=== PATIENT | male | born 1950 | race Caucasian/White ===

== ENCOUNTER → 2016-06-20 | Outpatient (CLI) | payer MEDICARE, BC ==
[~2016-06-20] MED LIST: ASPIRIN81 M1 PO; ASPIRIN81 M2 PO; AUGMENTIN PO; EFFIENT10 MG PO; FERROUS GLUCON324 M1 PO; FLAGYL PO; FLONASE 0.05% N16 GM INH; IBUPROFEN400 MG PO; IPRAT-ALBUT 0.5-3 ML INH; ISOSORBIDE MONO30 M1 PO; LEVAQUIN250 MG PO; LEVAQUIN750 M1 PO; LEVAQUIN750 MG PO; LINEZOLID600 MG PO; LISINOPRIL10 MG PO; MEDROL DOSEPAK4 MG PO; METOPROLOL TAR25 MG PO; NO MEDICATIONS; NORVASC10 MG PO; OXYGEN; PLAVIX PO; PREDNISONE10 M1 PO; ROBITUSSIN A-C10 ML PO; SIMVASTATIN40 MG PO; TYLENOL EXTRA500 M1 PO
--- NOTE | ~2016-06-20 | CT57 ---
[facility]. [facility] A Service of [facility] & [facility] RADIOLOGY TEXT RESULTS PATIENT: KATHLEEN FAIRBANKS LOCATION: [facility] : 50 UNIT #: [id number] AGE: [address]: Lit Vides MD SEX: M ORDER DR: [id number] [place] [id number] O MR#: [id number] Acc #: [id number] NAME: KATHLEEN FAIRBANKS : 1950 SEX: M STUDY DATE/TIME: 06/20/2016 1534 UNIT: [facility] ROOM: STUDY DESCRIPTION: CT Chest Wo Cont Attending Physician: Lit Vides Jr., M.D. Ordering Physician: Lit Vides Jr., M.D. Primary Care Physician: Yobany White M.D. MEDICAL IMAGING REPORT This report is preliminary unless electronic signature is present. EXAM CT chest without contrast, 06/20/2016, 1534 hours. CLINICAL HISTORY 66-year-old man with a history of smoking for 40 years but has quit. COPD, followup lung nodule. Patient complains of chronic shortness of air and pneumonia with 3 recent occurrences. Most recent symptoms began on 06/15/2016 with abnormal chest x-ray on 06/18/2016. TECHNIQUE Helical noncontrasted images were obtained from the thoracic inlet through the adrenal glands. Sagittal and coronal reconstructions were performed. No contrast was administered. CT dose is not recorded on the images. This CT exam was performed with one or more of the following radiation dose reduction techniques: automatic exposure control, adjustment of mA and/or kV according to patient size, and iterative reconstruction. COMPARISON Chest x-ray 06/18/[address] chest 06/08/2015 and multiple prior exams. FINDINGS Images through the thoracic inlet demonstrate stable right thyroid nodule. No thyromegaly or adenopathy. Images through the chest demonstrate no pathologic mediastinal, hilar, or axillary adenopathy. Ascending aorta measures up to 3.6 cm unchanged. Descending thoracic aorta measures maximally 3.8 cm increased from 3.6 cm previously. There are coronary calcifications present. There is no pericardial fluid. The lungs demonstrate an element of underlying centrilobular emphysema. There is airspace and consolidation in the left perihilar region in the STS. [facility] A Service of [facility] & [facility] RADIOLOGY TEXT RESULTS PATIENT: KATHLEEN FAIRBANKS LOCATION: [facility] : 50 UNIT #: [id number] AGE: [address]: Lit Vides MD SEX: M ORDER DR: left upper lobe with diffuse interstitial reticular thickening in the left upper lobe inferiorly and patchy peripheral airspace density in the inferior aspect of the lingula increased from 06/08/2015. Questioned central nodule or mass versus dense consolidation measuring up to 3.5 x 3.0 cm on image 39. The lingular changes have clearly progressed from 06/08/2015 but have been present and unresolved by CT over several years. There is no interval study with complete resolution of the findings in the lingula. There is interstitial change in the left lower lobe with dense airspace density medially. There are vague poorly defined nodular areas which have increased. Example nodule in the lateral left lower lobe measures 1.9 cm, previously 0.8 cm. There is definite progression throughout the left lower lobe. There are findings in the right lung with the same poorly defined nodular changes scattered in the upper lobe, right middle lobe, and lower lobe. A nodule in the superior segment of the right lower lobe measures 1.4 cm and is not seen previously. Smaller nodular areas are seen in the right upper lobe, some of which were present previously. There is no pleural fluid. No definite bronchiectasis. Limited views through the upper abdomen demonstrate a normal appearance to the liver, gallbladder, and bile ducts. The adrenal glands are normal. IMPRESSION 1. Abnormal chest CT with dense consolidation in the left perihilar region of the lingula with diffuse interstitial change and patchy airspace change anteromedially. There is dense airspace change at the medial left lower lobe with scattered vague poorly defined nodular areas in the left lower lobe and now in the right lung, right upper lobe, right middle lobe, and right lower lobe as described above. The findings in the lingula have never completely resolved on multiple CTs dating back through 2014. The density has fluctuated but is clearly progressive today. Findings in the left lower lobe and right lung are new or increased from 2015, but certainly increased from the most recent available CT 06/08/2015. The etiology for these findings is not clear. Consider atypical infection. Malignancy cannot be completely excluded. Other entities including vasculitis should be considered. If the patient has not had a pulmonary consult with bronchoscopy, I would suggest that be performed at this time. 2. There is no adenopathy. 3. There is ascending aortic ectasia up to 3.6 cm with increasing descending thoracic aortic ectasia now 3.8 cm, previously 3.6 cm in 2016. STAT * RESULT [facility]. [facility] A Service of [facility] & [facility] RADIOLOGY TEXT RESULTS PATIENT: KATHLEEN FIARBANKS LOCATION: [facility] : 50 UNIT #: [id number] AGE: [address]: Lit Vides MD SEX: M ORDER DR: Dictated by... Mikala Martinez M.D. THIS IS AN ELECTRONICALLY VERIFIED REPORT Mikala Martinez M.D. at 06/23/2016 2:28 PM WILI/fito TD: 06/23/2016 11:42 JOB #: [id number] MEDICAL IMAGING REPORT Page 1 of 1
== END | disposition home or self-care (01) ==
LOC: SCT 15:28
DX: R91.1 Solitary pulmonary nodule (principal); J18.9 Pneumonia, unspecified organism; I77.810 Thoracic aortic ectasia; R91.8 Other nonspecific abnormal finding of lung field
CPT/HCPCS: 71250

== ENCOUNTER 2016-07-01 21:16 | Inpatient (IN) | payer MEDICARE, BC ==
--- NOTE | ~2016-07-01 | CR72 ---
[facility] A Service of [facility] & [facility] RADIOLOGY TEXT RESULTS PATIENT: KATHLEEN FAIRBANKS LOCATION: [facility] 302-01 : [birth year] UNIT #: [id number] AGE: [address]: Kathrin Matthews MD SEX: M ORDER DR: [id number] [facility] [address] [place], [place] [address] [id number] E MR#: [id number] Acc #: [id number] NAME: KATHLEEN FAIRBANKS. : 1950 SEX: M STUDY DATE/TIME: 07/01/2016 19:50 UNIT: [facility] ROOM: STUDY DESCRIPTION: CR Chest Single View Portable Attending Physician: Louise Kirby M.D. Ordering Physician: Ed Delio Cantu M.D. Primary Care Physician: Yobany White M.D. MEDICAL IMAGING REPORT This report is preliminary unless electronic signature is present EXAM Portable chest INDICATIONS Shortness of breath, cough, congestion, pneumonia for 3 weeks. Comparison with 06/27/2016. FINDINGS Redemonstrated is a airspace infiltrate in the left lung base consistent with pneumonia. It appears to be slightly worse. The remainder of the study is unchanged. IMPRESSION Slight interval worsening of left lung base infiltrate. Dictated by... Braulio Yepez M.D. THIS IS AN ELECTRONICALLY VERIFIED REPORT Braulio Yepez M.D. at 07/02/2016 10:04 AM YENNI/toro TD: 07/01/2016 23:46 JOB #: [id number] MEDICAL IMAGING REPORT Page 1 of 1 COPY
--- NOTE | ~2016-07-01 | HP ---
Unit #: [id number] #: [id number] Patient: KATHLEEN FAIRBANKS [id number] [address] [place], [place] [address] [id number] I MR#: [id number] NAME: KATHLEEN FAIRBANKS. ROOM: 69455 Age: 66 Sex: M Admission Date: 07/02/2016 : 1950 Attending Physician: Verónica Mckinnon M.D. Primary Care Physician: Yobany White M.D. HISTORY AND PHYSICAL CHIEF COMPLAINT Respiratory failure, possible pneumonia, failing outpatient treatment. HISTORY This pleasant 66-year-old male with CAD, hypertension, COPD, is admitted for respiratory failure. Patient states that he was well until three weeks prior to admission when he began to experience increasing shortness of breath particularly in the morning upon awakening with a cough, which is mainly nonproductive, associated with some wheezing. Denies fever, sweats, chills, or pleuritic chest pain with the above. He was seen by his primary care physician and given a course of steroids and amoxicillin without much improvement. Last week was placed on a Z-Edilson and a CT scan was performed. The CT scan is abnormal, as will be dictated below, possible consistent with pneumonia, although malignancy could not be ruled out. Despite the Z-EDILSON patient's symptoms have persisted. He presents to this emergency department today where his O2 sats are in the upper 80s. Chest x-ray shows slight increase infiltrates left lung base. In the ER he was treated with Rocephin, given a bolus of IV fluids. Also given Zithromax, Solu-Medrol, magnesium and is on a 50% Ventimask with O2 sats of about 94%. PAST MEDICAL HISTORY 1. CAD with previous SC four years ago requiring stent placement. Ejection fraction 45% to 50%. 2. Essential hypertension. 3. COPD. 4. Hyperlipidemia. 5. GERD. 6. Peripheral vascular disease, status post stents in the right leg. 7. Diverticular disease. 8. Left knee arthroscopic surgery. 9. Vasectomy. 10. Cardiac and right lower extremity stents. ALLERGIES No known drug allergies. HOME MEDICATIONS Lisinopril 10 mg daily; Lopressor 25 mg daily; Plavix 75 mg daily; aspirin 81 mg daily; Zocor 40 mg daily; p.r.n. albuterol. FAMILY HISTORY Positive for tuberculosis and CAD. Of note, patient has always tested Unit #: [id number] #: [id number] Patient: KATHLEEN FAIRBANKS negative for TB. SOCIAL HISTORY The patient lives with his who currently is ill with malignancy. He has a history of 80 pack year smoking history but stopped smoking seven years ago. Drinks occasional alcohol. REVIEW OF SYSTEMS Notable for shortness of breath, cough, wheezing, COPD, CAD, hypertension, hyperlipidemia, GERD, peripheral vascular disease, diverticular disease and above mentioned surgeries. All other systems were reviewed and are negative. PHYSICAL EXAMINATION GENERAL: Pleasant 66-year-old male currently in no acute distress. VITAL SIGNS: Temperature 97.8, pulse 96, respirations 15, blood pressure 142/109 but did increase to a systolic blood pressure of 180. His O2 saturation was about 94% on a 50% Ventimask. HEENT: Eyes - PERRLA. Extraocular muscles are intact. Pharynx is benign. NECK: Supple without adenopathy or thyromegaly. CHEST: Chest reveals some crackles and rhonchi on the left. CARDIAC: Normal S1 and S2 without murmur. ABDOMEN: Soft, bowel sounds are present. No hepatosplenomegaly, tenderness or masses. EXTREMITIES: Without edema. Pedal pulses stronger on the left than the right. NEUROLOGIC: Patient is awake, alert and oriented. Cranial nerves are intact. Equal strength throughout. DIAGNOSTIC STUDIES LABORATORY STUDIES: Hematocrit is 44.4, white blood count is 13.5, normal platelet count. SMA 12 is normal. IMAGING STUDIES: Chest x-ray shows increased density left lower lung. CT scan performed last week - dense consolidation in the left perihilar region of the lingula with diffuse interstitial changes and patchy air space changes. Dense airspace change at the medial left lower lobe with scattered vague poorly defined nodular areas in the left lower lobe and now in the right lung, right upper lobe, right middle lobe, and right lower lobe. Consider atypical infection, malignancy cannot be excluded. Questionable vasculitis. No adenopathy. Ascending aortic ectasia up to 3.6 cm with increasing descending thoracic aorta, ectasia now to 3.8 cm from 3.6 cm in 2016. CARDIOLOGY STUDIES: EKG - sinus rhythm rate 86, Q in lead 3. ASSESSMENT 1. Possible community acquired pneumonia failing outpatient antibiotics with likely acute on chronic hypoxic respiratory failure. Abnormal CT scan last week. Need to also be consider malignancy, etc. 2. COPD. 3. CAD. Ejection fraction 45% to 50%. 4. Essential hypertension. 5. Hyperlipidemia. 6. Peripheral vascular disease, status post right leg stent. 7. Ascending aortic ectasia. Unit #: [id number] #: [id number] Patient: KATHLEEN FAIRBANKS 8. Patient was exposed to tuberculosis but has always had negative PPDs for TB. PLANS 1. Rocephin and Levaquin pending cultures. 2. DuoNeb and steroids. 3. Pulmonary consultation. 4. DVT prophylaxis. 5. Monitor blood pressure and treat if persistently elevated. 6. Legionella antigen. Dictated by Lula Rodriguez/ts TD: 07/02/2016 05:32 JOB #: [id number] HISTORY AND PHYSICAL Page 1 of 1 X Verónica Mckinnon MD X HISTORY AND PHYSICAL
--- NOTE | ~2016-07-01 | EKG ---
PATIENT: KATHLEEN FAIRBANKS UNIT #: [id number] Ventricular Rate: 86 BPM Atrial Rate: 86 BPM P-R Interval: 112 ms QRS Duration: 104 ms Q-T Interval: 372 ms QTC Calculation(Bezet): 445 ms P Colton: 34 degrees Calculated R Colton: -8 degrees Calculated T Colton: 81 degrees Diagnosis Line: Normal sinus rhythm Diagnosis Line: Inferior infarct , age undetermined Diagnosis Line: Abnormal ECG Diagnosis Line: No previous ECGs available Diagnosis Line: Confirmed by ARYAN RENNER MD ([id number]) on 07/02/2016 Diagnosis Line: 10:44:48 PM INTERPRETING MD: ZURDO SANTOS
--- NOTE | ~2016-07-01 | DS ---
Unit #: [id number] #: [id number] Patient: KATHLEEN FAIRBANKS [id number] [address] [place], [place] [address] [id number] I MR#: [id number] NAME: KATHLEEN FAIRBANKS. ROOM: 302 Age: 66 Sex: M Admission Date: 07/02/2016 : 1950 Discharge Date: 07/04/2016 Attending Physician: Kathrin Matthews M.D. Primary Care Physician: Yobany White M.D. DISCHARGE SUMMARY PRINCIPAL DIAGNOSES 1. Auzqi-jv-igseyzy hypoxic respiratory failure maintained on 2 liters of oxygen per nasal cannula. 2. Acute exacerbation of chronic obstructive pulmonary disease. 3. Left lower lobe community-acquired pneumonia versus atypical pneumonia. 4. Hypertension, uncontrolled. 5. Hyperkalemia, JORGE inhibitor induced. 6. Iron-deficiency anemia. 7. Steroid-induced leukocytosis. 8. Non-anion gap metabolic acidosis. 9. Coronary artery disease. 10. Hyperlipidemia. 11. Mild protein malnutrition. CONSULTANTS Dr. Peace, pulmonology. PROCEDURES Chest x-ray on 07/01/2016 with left lung infiltrate. CLINICAL HISTORY AND HOSPITAL COURSE Mr. Fairbanks is a very nice 66-year-old male who presents to the emergency department with increasing shortness of breath despite being treated as an outpatient for pneumonia. Please refer to History and Physical for further details. Patient was found to be significantly hypoxic in the emergency department with O2 saturations in the low 80s. He was subsequently admitted. Chest x-ray done in the emergency department did reveal left lower lobe infiltrate and patient was placed on broad-spectrum antibiotics. Sputum has been unremarkable. I also note procalcitonin has been normal and patient only had mild leukocytosis of 13,[address] Peace was consulted. On antibiotic therapy, in addition to IV steroids due to patient's underlying COPD, he is clinically improved. On day of discharge, his oxygen requirements are 2 liters at rest and I am currently awaiting an ambulating O2 saturation to determine need of oxygen at home. However, I strongly anticipate he will require oxygen at home, at least in the short-term, and I will arrange this as necessary. Patient did have some mild hyperkalemia during hospitalization and lisinopril has been discontinued. I have replaced with Norvasc and blood pressure will have to be monitored as an outpatient with medication adjustment. Unit #: [id number] #: [id number] Patient: KATHLEEN FAIRBANKS Patient has otherwise remained stable and will be discharged home today. DISCHARGE CONDITION Stable. DISCHARGE STATUS Discharge to home. DISCHARGE MEDICATIONS 1. Combivent nebulizer 3 mL q.i.d. p.r.n. for shortness of breath. 2. Prednisone 10 mg tablets 4 tablets for 3 days; then, 3 tablets for 3 days; then, 2 tablets for 3 days; then, 1 tablet for 3 days; then, discontinue. 3. Levaquin 750 mg p.o. daily for 5 days. 4. Norvasc 10 mg daily. 5. Ferrous gluconate 324 mg b.i.d. 6. Metoprolol tartrate 25 mg daily. 7. Simvastatin 40 mg h.s. 8. Aspirin 81 mg daily. 9. Plavix 75 mg daily. 10. Oxygen at 2-3 liters per nasal cannula continuously; need will be determined later today with ambulating O2 saturations. DISCHARGE INSTRUCTIONS 1. Patient was instructed to follow a heart-healthy diet. 2. Increase activity as tolerated. FOLLOWUP Patient will follow up with Dr. Peace next week at which time he has an appointment. Can arrange for outpatient bronchoscopy as necessary for further evaluation of his left lower lobe infiltrate. The patient would also like to hold on addition of maintenance inhalers until seen as an outpatient by Dr. Peace. Dictated by... Kathrin Matthews M.D. RADHA/aisha TD: 07/04/2016 21:33 JOB #: [id number] Unit #: [id number] #: [id number] Patient: KATHLEEN FAIRBANKS DISCHARGE SUMMARY Page 1 of 1 X Kathrin Matthews MD DISCHARGE SUMMARY
--- NOTE | ~2016-07-01 | DS ---
Unit #: [id number] #: [id number] Patient: KATHLEEN FAIRBANKS [id number] [address] [address] [id number] I MR#: [id number] NAME: KATHLEEN FAIRBANKS. ROOM: [facility] Age: 66 Sex: M Admission Date: 07/02/2016 : 1950 Discharge Date: 07/04/2016 Attending Physician: Kathrin Matthews M.D. Primary Care Physician: Yobany White M.D. DISCHARGE SUMMARY ADDENDUM Ambulating oxygen saturation was 89 to 90% and, thus, the patient will not be sent home with any oxygen. Dictated by... Lula Rodriguez/cortez TD: 07/06/2016 13:25 JOB #: [id number] DISCHARGE SUMMARY Page 1 of 1 X Kathrin Matthews MD X DISCHARGE SUMMARY
--- NOTE | ~2016-07-01 | CO ---
Unit #: [id number] #: [id number] Patient: KATHLEEN FAIRBANKS [id number] [address] [place], [place] [address] [id number] MR#: [id number] NAME: KATHLEEN FAIRBANKS. ROOM: 302 Age: 66 Sex: M Admission Date: 07/02/2016 : 1950 Attending Physician: Kathrin Matthews M.D. Primary Care Physician: Yobany White M.D. Consultation Date: 07/02/2016 CONSULTATION REPORT HISTORY OF PRESENT ILLNESS This is a gentleman with history of pulmonary fibrosis and scarring. He said he has a history of COPD and coronary artery disease. He has had several pneumonia over the past several months. He has a history of coronary disease and hypertension. The patient was admitted for respiratory failure approximately 3 weeks prior to admission. The patient developed increasing shortness of breath particularly in the morning when he working up with a cough nonproductive, wheezing. No fevers, chills, sweats, or chills. The patient is seen by primary care physician, given a course of steroids and amoxicillin without improvement. Following week, he was placed on a Z-Edilson, still no improvement. CT scan showed that there was significant scarring especially in the lingular lobe; however, in both the right and left lower lobes, this seems to be somewhat increased from approximately one year ago. The patient shows some increase in the infiltrate, so we suspected there was a community-acquired pneumonia on top of his chronic infiltrates. The previous bronchoscopy did not show any growth of AFBs or any organisms. However, the patient is still likely to have opportunistic in organism growth. Therefore, we have been consulted to see whether the patient is appropriate for bronchoscopy. PAST MEDICAL HISTORY Significant for coronary artery disease, previous ME 4 years ago, required stent placement, ejection fraction 45% to 50%; essential hypertension; COPD; hyperlipidemia; GERD; peripheral vascular disease; diverticular disease. PAST SURGICAL HISTORY Significant for vasectomy, right lower extremity stent, left knee arthroscopic surgery, cardiac stent. ALLERGIES The patient has no known medical allergies. HOME MEDICATIONS Include lisinopril 10 mg daily, Lopressor 25 mg daily, Plavix 75 mg daily, aspirin 81 mg daily, Zocor 40 mg daily, and albuterol p.r.n. FAMILY HISTORY Positive for tuberculosis and coronary artery disease. The patient has never been PPD positive. SOCIAL HISTORY The patient lives with , who is currently ill. He has 80-pack year history of smoking. Stopped 7 years ago. Occasional EtOH. Unit #: [id number] #: [id number] Patient: KATHLEEN FAIRBANKS REVIEW OF SYSTEMS Significant for cough, wheezing, shortness of breath. No sweats, but no significant fevers, chills, nausea, vomiting, or diarrhea. There may have been some weight loss. Otherwise, a 12-point review of systems is negative. PHYSICAL EXAMINATION VITAL SIGNS: T-current 97.6, pulse 86, respiratory rate 141/73, saturations 95% 2 L nasal cannula. CHEST: Shows decreased breath sounds bilaterally with no rhonchi, rales, or wheezes. CARDIOVASCULAR: Regular rate. No gallop. ABDOMEN: Soft, nontender, and nondistended. EXTREMITIES: Shows no evidence of edema. DIAGNOSTIC STUDIES LABORATORY RESULTS: Labs show BUN and creatinine 18/0.8, otherwise chem-7 is normal. White count is 11.8 with MCV 78.4, hemoglobin 13.4 on presentation. Vitamin B12 461. Lactic acid 1.6. All cultures are negative so far. ASSESSMENT AND PLAN Recurrent pneumonia. I suspect this is due to the scarring especially in the lingular lobe; however, I am worried that the patient may have chronic infection. Therefore, we will try to proceed with a bronchoscopy when the patient's oxygen requirements are lower. Currently, the patient is too hypoxic to do a bronchoscopy. We will follow him as an outpatient and try to do it at that point. Meantime, I would like to continue current nebs and going to continue antibiotics and I would like to continue with systemic steroids. We are going to check him for any sort of autoimmune disease to see if this infiltrates is in bilateral lower lobes and scattered in actually a fibrosis. Thank you very much for this consult and allowing us to participate in the care of this patient. Please page me at [phone] if you have any questions. Dictated by.Julieta Peace M.D. VICKY/camille TD: 07/04/2016 02:31 JOB #: [id number] CONSULTATION REPORT Page 1 of 1 X Valente Peace MD CONSULTATION REPORT
[~2016-07-01 21:16] MED LIST changes: -FERROUS GLUCON324 M1 PO; -IPRAT-ALBUT 0.5-3 ML INH; -ISOSORBIDE MONO30 M1 PO; -LEVAQUIN250 MG PO; -LINEZOLID600 MG PO; -NORVASC10 MG PO; -PREDNISONE10 M1 PO
[2016-07-01 21:37] LABS: BASOPHIL# 0.1 X10e3 (0-0.3); BASOPHIL% 0.6 % (0-2.5); EOSINOPHIL# 0.2 X10e3 (0-0.7); EOSINOPHIL% 1.1 % (0.0-7.0); HEMATOCRIT 44.4 % (38.0-50.0); HEMOGLOBIN 13.9 gm/dL (13.0-16.0); LYMPHOCYTE# 2.8 X10e3 (1.0-3.5); LYMPHOCYTE% 20.8 % (17.0-45.0); MEAN CELL VOLUME 78.9 FL (83-96); MEAN CORPUSCULAR HEMOGLOBIN 24.7 PG (28-34); MEAN CORPUSCULAR HGB CONC 31.3 g/dL (30-36); MEAN PLATELET VOLUME 7.6 FL (6.5-11.5); MONOCYTE# 1.4 X10e3 (0-1.0); MONOCYTE% 10.1 % (3.0-12.0); NEUTROPHIL# 9.1 X10e3 (1.5-7.1); NEUTROPHIL% 67.4 % (40-75); PLATELET COUNT 328 X10e3 (140-420); RED BLOOD COUNT 5.63 X10e (3.90-5.60); RED CELL DISTRIBUTION WIDTH 16.2 % (11.0-15.5); WHITE BLOOD COUNT 13.5 X10e3 (4.0-10.5)
[2016-07-01 21:40] LABS: DIFF IND NO
[2016-07-01 22:00] LABS: ALBUMIN SERUM 3.6 g/dL (3.5-5.0); BILIRUBIN, DIRECT 0.1 mg/dL (0.0-0.2); BILIRUBIN,INDIRECT 0.4 mg/dL (0.0-0.9); BILIRUBIN,TOTAL 0.5 mg/dL (0.2-2.0); BUN/CREATININE RATIO 22.22; CALCIUM SERUM 8.8 mg/dL (8.4-10.2); CREATININE SERUM 0.9 mg/dL (0.6-1.4); GLOM FILT RATE Estimated 88.7 mL/min (>60); POTASSIUM 4.1 mmol/L (3.5-5.1); PROTEIN TOTAL SERUM 6.8 g/dL (6.0-8.3)
[2016-07-02 00:54] LABS: BASOPHIL% 0.4 % (0-2.5); EOSINOPHIL% 0.3 % (0.0-7.0); HEMATOCRIT 42.5 % (38.0-50.0); HEMOGLOBIN 13.4 gm/dL (13.0-16.0); LYMPHOCYTE# 0.9 X10e3 (1.0-3.5); LYMPHOCYTE% 7.7 % (17.0-45.0); MEAN CELL VOLUME 78.4 FL (83-96); MEAN CORPUSCULAR HEMOGLOBIN 24.8 PG (28-34); MEAN CORPUSCULAR HGB CONC 31.6 g/dL (30-36); MEAN PLATELET VOLUME 7.6 FL (6.5-11.5); MONOCYTE# 0.2 X10e3 (0-1.0); MONOCYTE% 1.7 % (3.0-12.0); NEUTROPHIL# 10.6 X10e3 (1.5-7.1); NEUTROPHIL% 89.9 % (40-75); PLATELET COUNT 319 X10e3 (140-420); RED BLOOD COUNT 5.42 X10e (3.90-5.60); RED CELL DISTRIBUTION WIDTH 16.3 % (11.0-15.5); WHITE BLOOD COUNT 11.8 X10e3 (4.0-10.5)
[2016-07-02 00:55] LABS: DIFF IND NO
[2016-07-02 01:18] LABS: BUN/CREATININE RATIO 22.5; CALCIUM SERUM 8.1 mg/dL (8.4-10.2); CREATININE SERUM 0.8 mg/dL (0.6-1.4); GLOM FILT RATE Estimated 93.1 mL/min (>60); POTASSIUM 4.3 mmol/L (3.5-5.1)
[2016-07-02 12:17] LABS: IRON SERUM 22 ug/dL (45-182); TOTAL IRON BINDING CAPACITY 469 ug/dL (252-460); TRANSFERRIN 335 mg/dL (180-329); TRANSFERRIN SATURATION 5 % (20-50)
[2016-07-03 05:39] LABS: HEMATOCRIT 42.2 % (38.0-50.0); HEMOGLOBIN 13.1 gm/dL (13.0-16.0); MEAN CELL VOLUME 79.5 FL (83-96); MEAN CORPUSCULAR HEMOGLOBIN 24.7 PG (28-34); MEAN PLATELET VOLUME 8.1 FL (6.5-11.5); RED BLOOD COUNT 5.3 X10e (3.90-5.60); RED CELL DISTRIBUTION WIDTH 16.3 % (11.0-15.5); WHITE BLOOD COUNT 14.7 X10e3 (4.0-10.5)
[2016-07-03 06:00] LABS: CALCIUM SERUM 8.6 mg/dL (8.4-10.2); CREATININE SERUM 0.9 mg/dL (0.6-1.4); GLOM FILT RATE Estimated 88.7 mL/min (>60); MAGNESIUM 2.2 mg/dL (1.6-3.0); POTASSIUM 5.1 mmol/L (3.5-5.1)
[2016-07-04 05:42] LABS: MEAN CELL VOLUME 79.1 FL (83-96); MEAN CORPUSCULAR HEMOGLOBIN 24.6 PG (28-34); MEAN PLATELET VOLUME 8.4 FL (6.5-11.5); RED BLOOD COUNT 5.31 X10e (3.90-5.60); RED CELL DISTRIBUTION WIDTH 16.2 % (11.0-15.5); WHITE BLOOD COUNT 18.2 X10e3 (4.0-10.5)
[2016-07-04 06:36] LABS: BILIRUBIN,TOTAL 0.4 mg/dL (0.2-2.0); BUN/CREATININE RATIO 28.75; CALCIUM SERUM 8.5 mg/dL (8.4-10.2); CREATININE SERUM 0.8 mg/dL (0.6-1.4); GLOM FILT RATE Estimated 93.1 mL/min (>60); POTASSIUM 4.8 mmol/L (3.5-5.1)
[2016-07-04] MEDS ORDERED: NORVASC10 MG PO (13:37)
[2016-07-04] MEDS ORDERED: IPRAT-ALBUT 0.5-3 ML INH (13:37)
[2016-07-04] MEDS ORDERED: FERROUS GLUCON324 M1 PO (13:39)
[2016-07-04] MEDS ORDERED: LEVAQUIN750 M1 PO (13:40)
[2016-07-04] MEDS ORDERED: PREDNISONE10 M1 PO (13:41)
[2016-07-05 14:18] LABS: ANA SCREEN Positive (Negative); ANA TITER (ANA) 1:40 (Negative); ANA TITER COMMENT Has been added (()); NUCLEAR PATTERN (ANA) Homogeneous (())
== END 2016-07-04 14:15 | disposition home or self-care (01) | DRG 189 ==
LOC: CED 21:16 → CEDOF 07-02 00:10 → C3A PCU 07-02 07:36
PROVIDERS: Emergency Medicine; Internal Medicine; Internal Medicine Pulmonary Disease
DX: J96.21 Acute and chronic respiratory failure with hypoxia (principal); J18.9 Pneumonia, unspecified organism; E87.2 Acidosis; J44.0 Chronic obstructive pulmonary disease with (acute) lower respiratory infection; J84.10 Pulmonary fibrosis, unspecified; J44.1 Chronic obstructive pulmonary disease with (acute) exacerbation; E44.1 Mild protein-calorie malnutrition; I10 Essential (primary) hypertension; E87.5 Hyperkalemia; D50.9 Iron deficiency anemia, unspecified; I25.10 Atherosclerotic heart disease of native coronary artery without angina pectoris; E78.5 Hyperlipidemia, unspecified; Z95.820 Peripheral vascular angioplasty status with implants and grafts; D72.829 Elevated white blood cell count, unspecified; T38.0X5A Adverse effect of glucocorticoids and synthetic analogues, initial encounter; I25.2 Old myocardial infarction; Z95.5 Presence of coronary angioplasty implant and graft; Z79.02 Long term (current) use of antithrombotics/antiplatelets; Z79.82 Long term (current) use of aspirin; Z82.49 Family history of ischemic heart disease and other diseases of the circulatory system; Z87.891 Personal history of nicotine dependence
CPT/HCPCS: 36415; 71010; 80048; 80053; 80076; 82164; 82308; 82607; 83540; 83550; 83605; 83735; 85025; 85027; 85652; 86038; 86039; 86430; 87040; 87070; 87102; 87106; 87116; 87205; 87206; 87449; 87633; 93005; 94640; 94760; 96365; 96375; 99285; J0360; J0456; J0696; J1650; J1956; J2920; J2930; J3370; J3475

== ENCOUNTER 2016-07-21 22:25 | Inpatient (IN) | payer MEDICARE, BC ==
--- NOTE | ~2016-07-21 | EKG ---
PATIENT: KATHLEEN AFIRBANKS UNIT #: [id number] Ventricular Rate: 84 BPM Atrial Rate: 84 BPM P-R Interval: 134 ms QRS Duration: 102 ms Q-T Interval: 358 ms QTC Calculation(Bezet): 423 ms P Charlotte: 74 degrees Calculated R Charlotte: 56 degrees Calculated T Charlotte: 88 degrees Diagnosis Line: Normal sinus rhythm Diagnosis Line: Nonspecific ST abnormality Baseline wander Diagnosis Line: Otherwise normal ECG Non Diagnostic Q in Lead Diagnosis Line: Inferior leads Diagnosis Line: No previous ECGs available Diagnosis Line: Confirmed by GARFIELD ISABEL MD ([id number]) on 07/23/2016 Diagnosis Line: 9:50:29 AM INTERPRETING MD: CHALO SANTOS
--- NOTE | ~2016-07-21 | ST ---
Unit #: [id number] #: [id number] Patient: KATHLEEN FAIRBANKS [id number] [facility]. [facility] [address] [place] [address] [place], [place] [address] [id number] I MR#: [id number] NAME: KATHLEEN FAIRBANKS. : 1950 SEX: M STUDY DATE/TIME: 07/23/2016 UNIT: C3A PCU ROOM: 308 STUDY DESCRIPTION: Cardiac stress test. Attending Physician: Anish Lange M.D. Primary Care Physician: Yobany White M.D. CARDIOLOGY REPORT EXAM Lexiscan Cardiolite stress test. PROCEDURE Baseline EKG normal sinus rhythm with ventricular rate 77 beats per minute, poor R wave progression, left ventricular hypertrophy, peak T waves in the inferior anterolateral leads. Lexiscan is a 4 minute test with Lexiscan being injected within the first minute followed by Cardiolite. EKG during the test was equivocal to baseline. No acute ischemic changes. The patient had no complaints of chest pain, palpitations or dizziness. Had increased shortness of breath and fatigue which resolved in the recovery phase. Maximum heart rate response was 102 beats per minute with a maximum blood pressure response of 126/65 mmHg. Cardiolite was injected after Lexiscan within the first minute of the test. Radionuclide test pending. Please correlate with nuclear images. Dictated by... Bisi Ceja M.D. CEC/sha TD: 07/23/2016 12:08 JOB #: [id number] CC: Yobany White M.D. [facility] CARDIOLOGY REPORT Page 1 of 1 X Maria L Byrd APRN CARDIOLOGY REPORT
--- NOTE | ~2016-07-21 | TH ---
Unit #: [id number] #: [id number] Patient: KATHLEEN FAIRBANKS [id number] [facility]. [address] [place], [place] [address] [id number] I MR#: [id number] NAME: KATHLEEN FAIRBANKS. : 1950 SEX: M STUDY DATE/TIME: 07/23/2016 UNIT: C3A PCU ROOM: 308 STUDY DESCRIPTION: Attending Physician: Anish Lange M.D. Primary Care Physician: Yobany White M.D. CARDIOLOGY REPORT EXAM Lexiscan Cardiolite stress test, nuclear portion. PROCEDURE Using technetium 99m labeled Cardiolite, rest and stress SPECT images were obtained. Multiple SPECT images were obtained in various views including horizontal and vertical long axis and short axis views of the left ventricle. Images were obtained by gated SPECT method. The patient was administered 12 mCi of Cardiolite at rest. The patient was administered 34.5 mCi of Cardiolite after Lexiscan infusion was completed. On the stress images, there is normal perfusion noted. The rest images showed normal perfusion. Comparing rest and stress images, there is no stress-induced ischemia noted. The left ventricular ejection fraction is calculated to be 56%. There is no focal wall motion abnormality seen. CONCLUSION 1. No stress-induced ischemia noted. 2. The left ventricular ejection fraction is calculated to be 56%. 3. There is no focal wall motion abnormality seen. 4. Normal Lexiscan Cardiolite stress test. 5. Technically limited study. Clinical correlation is requested. Dictated by... Lula Kirkpatrick TD: 07/23/2016 16:54 JOB #: [id number] Unit #: [id number] #: [id number] Patient: KATHLEEN FAIRBANKS CARDIOLOGY REPORT Page 1 of 1 X Sonam Shipman MD <ELECTRONICALLY SIGNED> 10/04/16 [id number] CARDIOLOGY REPORT
--- NOTE | ~2016-07-21 | CO ---
Unit #: [id number] #: [id number] Patient: KATHLEEN FAIRBANKS [id number] [facility]. [address] [place], [place] [address] [id number] I MR#: [id number] NAME: KATHLEEN FAIRBANKS. ROOM: 308 Age: 66 Sex: M Admission Date: 07/22/2016 : 1950 Attending Physician: Anish Lange M.D. Primary Care Physician: Yobany White M.D. Consultation Date: 07/24/2016 CONSULTATION REPORT This is ESTRADA Hennessy dictating for Jasmeet Bui M.D. REASON FOR CONSULTATION Abnormal echocardiogram and chest pain. HISTORY OF PRESENT ILLNESS This is a 66-year-old male, known to Dr. Bui, with a prior cardiac history of coronary artery disease with a non-STEMI in 2012. He had a cardiac cath in 03/2012, which showed left main normal, left circumflex 80% proximal and 95% marginal branch, LAD normal, RCA 100% immediately beyond origin with ipsilateral and contralateral collaterals, EF of 45% to 50% with eglhvtbg-ml-yswtiz inferobasilar hypokinesis. At that time, he underwent PTCA with drug-eluting stent to left circumflex proximal and marginal. He also has a history of hypertension, hyperlipidemia, peripheral vascular disease with right lower extremity stent, GERD, diverticulosis, reformed tobacco abuse. In addition, he has a history of COPD and pulmonary fibrosis. He was recently hospitalized in 07/02/2016 through 07/04/2016 for pneumonia and he was sent home on oxygen at night. He presented to the hospital with increasing shortness of breath, productive cough, and intermittent dyspnea on exertion. In the ER, his saturations were 84% on room air. A chest x-ray showed progressing infiltrates. CT of the chest was negative for a PE, but showed increasing infiltrates. Initially, he was given antibiotics. On 07/23/2016, a Lexiscan Cardiolite stress test was done, which was negative for ischemia. He report an episode of left anterior chest "aching" pain with left axilla and left arm numbness and tingling. The chest discomfort occurred when he was walking outside of his car. He became short of breath and it was accompanied with nausea and dizziness. Pain was worse with deep inspiration and resolves spontaneously with rest, although his left chest is cloth bleaching range tender with palpation. He reports he had one similar episode with activity in the last couple weeks. This pain is different than the pain he had with his non-STEMI in 2013. Denies other episodes of chest pain since his cardiac cath in 2012. We were asked to see him due to his abnormal echo and the chest pain episode. PAST MEDICAL HISTORY 1. Coronary artery disease, status post non-STEMI in 2012 and PTCA/drug eluting stent to the left circumflex x2. 2. Cardiac cath on 04/08/2012 showed left main normal, left circumflex 80% proximal and 95% marginal branch, LAD normal, RCA 100% immediately beyond origin with ipsilateral and contralateral collaterals, EF 45% to 50% with qezsrqvt-bs-afzuou inferobasilar hypokinesis. Unit #: [id number] #: [id number] Patient: KATHLEEN FAIRBANKS 3. Hypertension. 4. Hyperlipidemia. 5. PVD, status post right lower extremity stent. 6. COPD with nocturnal O2. 7. Pulmonary fibrosis. 8. GERD. 9. Diverticulosis. 10. Reformed tobacco abuse. 11. Recent hospitalization for pneumonia on 07/02/2016 through 07/04/2016. PAST SURGICAL HISTORY 1. Bronchoscopy in 04/2015. 2. Left knee arthroscopy. 3. Cardiac cath and PTCA and stents on 04/08/2012. 4. Vasectomy. SOCIAL HISTORY He lives with his . He works 25 hours a week. Denies illicit drug use. Drinks a beer less than 5 times a year. Former heavy smoker, but quit in 2009. FAMILY HISTORY His brother from an ND at the age of 41. Another brother of an ND at 62. His sister had valve repair in her 40s. ALLERGIES No known drug allergies. HOME MEDICATIONS Metoprolol tartrate 25 mg p.o. daily, Plavix 75 mg p.o. daily, aspirin 81 mg p.o. daily, simvastatin 40 mg p.o. daily, albuterol/Atrovent inhaler q.i.d., Norvasc 10 mg p.o. daily, ferrous gluconate 324 mg p.o. b.i.d. REVIEW OF SYSTEMS Positive for dyspnea on exertion, intermittent chest pain, left arm numbness and tingling. Otherwise, negative except for what was stated in the HPI. PHYSICAL EXAMINATION GENERAL: This is a pleasant 66-year-old male, resting in bed, in no acute distress. VITAL SIGNS: Temperature 97.4, heart rate 84, respiratory rate 18, blood pressure 117/51, height 70 inches, weight 76 kilograms. HEENT: Head is atraumatic and normocephalic. Pupils are equal and round. Mucous membranes are moist. Poor dentition. NECK: Supple. Trachea is midline. Negative for JVD. LUNGS: Rales in bilateral bases. Nonlabored respiratory pattern. CARDIOVASCULAR: S1, S2. Regular rate and rhythm. No murmurs or gallops heard. ABDOMEN: Soft, nontender, nondistended. EXTREMITIES: Pulses are palpable. No pedal edema. No cyanosis. NEUROLOGIC: Alert and oriented x3. Moves all extremities equally and follows commands without difficulty. DIAGNOSTIC STUDIES LABORATORY RESULTS: Sodium 135, potassium 4.9, chloride 104, BUN 20, creatinine 0.8, glucose 141. Hemoglobin 10.7, hematocrit 34, white blood cell count 12.5, platelets 342. Lipid panel: Cholesterol 159, Unit #: [id number] #: [id number] Patient: KATHLEEN FAIRBANKS triglycerides 44, LDL 76, HDL 74. Twpyn-ff-tomz troponin less than 0.05, troponin less than 0.03 x2. BNP 41. IMAGING STUDIES: Chest x-ray demonstrates possible lingular and left lower lobe infiltrate significantly changed from chest x-ray on 07/01/2016, findings are superimposed on background emphysema. CTA of chest negative for pulmonary embolus, demonstrates progressive airspace disease in consolidation of left lower lobe as well as continuing extensive consolidation inferior lingular segment. CARDIOVASCULAR STUDIES: EKG shows normal sinus rhythm with Q-wave in lead II and aVF, which is unchanged from EKG done on 05/04/2015, ventricular rate 84. Echocardiogram on 07/23/2016 shows LVEF of 50% to 55%, moderate septal hypokinesis, inferior wall hypokinesis, and mild MR. Lexiscan Cardiolite stress test done on 07/23/2016 was a technically limited study, but was negative for ischemia with an EF of 56%. ASSESSMENT 1. Chest pain. a. Lexiscan Cardiolite negative for ischemia. b. Cardiac enzymes negative. c. EKG, no ischemic changes. 2. Acute exacerbation of chronic obstructive pulmonary disease. 3. Dyspnea on exertion. 4. Coronary artery disease with history of myocardial infarction, status post percutaneous transluminal coronary angioplasty/drug eluting stent to left circumflex x2 in 2012. 5. Peripheral vascular disease, status post right lower extremity stents. 6. Essential hypertension. 7. Hyperlipidemia. 8. Pulmonary fibrosis. 9. Gastroesophageal reflux disease. PLAN We will add a nitrate with Imdur ER 30 mg p.o. once a day. We will watch him closely for blood pressure tolerance. No further ischemic workup is indicated at this time. We will follow on an outpatient basis. He is to keep his already scheduled appointment with Dr. Bui. Continue his beta-gabriela and calcium channel gabriela. Continue dual antiplatelet therapy with Plavix and aspirin. Continue statin as well. Okay for discharge from cardiac standpoint. No further ischemic workup indicated at this time. Thank you for asking us to see this patient. We appreciate the consult. Dictated by... Neda Dooley APRN for Lula Mendez/camille TD: 07/26/2016 06:51 JOB #: [id number] Unit #: [id number] #: [id number] Patient: KATHLEEN FAIRBANKS CONSULTATION REPORT Page 1 of 1 X X CONSULTATION REPORT
--- NOTE | ~2016-07-21 | CT16 ---
[facility] A Service of [facility] RADIOLOGY TEXT RESULTS PATIENT: KATHLEEN FAIRBANKS LOCATION: [facility] 308-01 : [birth year] UNIT #: [id number] AGE: [address]: Anish Lange MD SEX: M ORDER DR: [id number] [facility] [address] [place], [place] [address] [id number] I MR#: [id number] Acc #: [id number] NAME: KATHLEEN FAIRBANKS. : 1950 SEX: M STUDY DATE/TIME: 07/22/2016 1:39 UNIT: CEDOF ROOM: 04866 STUDY DESCRIPTION: CT Angio Chest for PE Attending Physician: Anish Lange M.D. Ordering Physician: Cyala Maria M.D. Primary Care Physician: Yobany White M.D. MEDICAL IMAGING REPORT This report is preliminary unless electronic signature is present EXAM CT chest PE protocol HISTORY Shortness of air chest pain x2 days, elevated D-dimer. HISTORY COPD COMPARISON CT chest 05/04/[address] chest 06/20/2016 TECHNIQUE Axial images form through the chest following IV contrast. Multiplanar reconstructed images reviewed at a workstation. This CT exam was performed with one or more of the following radiation dose reduction techniques: automatic control, adjustment of mA and/or kV according to patient size, and iterative reconstruction. FINDINGS Examination demonstrates extensive lung disease with airspace disease and opacification of the left lower lobe which has shown interval increase from the 06/20/2016 study. The lingular airspace disease and consolidation is not significantly changed. There are patchy areas of alveolitis superior segment left lower lobe and also superior segment right lower lobe. This has shown increase from the 06/20/2016 study. No evidence of pulmonary embolus. Heart size within normal limits. Aortic atherosclerotic changes but no aneurysm. No significant adenopathy. Upper abdomen to include the adrenal glands unremarkable. Osseous structures remarkable for a small superior endplate compression deformity at T9 thoracic inlet unremarkable. [facility] A Service of [facility] RADIOLOGY TEXT RESULTS PATIENT: FAIRBANKS,KATHLEEN M LOCATION: C3A 308-01 : [birth year] UNIT #: [id number] AGE: [address]: Anish Lange MD SEX: M ORDER DR: IMPRESSION 1. No evidence of pulmonary embolus. 2. Progressive airspace disease and consolidation left lower lobe as well as continued extensive consolidation inferior lingular segment. New or increasing patchy foci of alveolitis and airspace disease noted right lower lobe and superior segments of both lower lobes. Changes are superimposed on background emphysema. Findings most likely reflect airspace disease, but could represent other atypical infections as well as bronchiolitis obliterans with organizing pneumonia. Further pulmonary evaluation followup is recommended. Neoplastic process considered unlikely given the diffuse involvement. Dictated by... Amanda Yepez M.D. THIS IS AN ELECTRONICALLY VERIFIED REPORT Amanda Yepez M.D. at 07/23/2016 10:33 PM MARCO/augustin TD: 07/22/2016 07:20 JOB #: [id number] MEDICAL IMAGING REPORT Page 1 of 1 COPY
--- NOTE | ~2016-07-21 | DS ---
Unit #: [id number] #: [id number] Patient: KATHLEEN FAIRBANKS [id number] [address] [place], [place] [address] [id number] I MR#: [id number] NAME: KATHLEEN FAIRBANKS. ROOM: 308 Age: 66 Sex: M Admission Date: 07/22/2016 : 1950 Discharge Date: 07/25/2016 Attending Physician: Anish Lange M.D. Primary Care Physician: Yobany White M.D. DISCHARGE SUMMARY DISCHARGE DIAGNOSES 1. Hypoxic respiratory failure. 2. Chronic obstructive pulmonary disease exacerbation. 3. Dyspnea on exertion. 4. History of coronary artery disease. 5. History of peripheral vascular disease. 6. Essential hypertension. 7. Gastroesophageal reflux disease. 8. Left anterior chest pneumonia. CONSULTANTS Dr. Peace of pulmonary. Dr. Bui of cardiology. PROCEDURES PERFORMED None. DIAGNOSTIC DATA IMAGING: Chest x-ray 07/21/2016 with impression of extensive airspace opacity left lower lobe with some obscuration of the heart margin and left hemidiaphragm, suggesting a possible lingula left lower lobe infiltrate, not significantly changed from 06/21/2016. CT angiogram of the chest on 07/22/2016 with impression of no evidence of pulmonary embolism. Progressive airspace disease and consolidation left lower lobe, as well as continued extensive consolidation inferior lingula segment. New increasing patchy foci of alveolitis and airspace disease noted right lower lobe and superior segment of both lower lobes. Changes are superimposed on background emphysema. LABORATORY: On the day of discharge, BMP with glucose of 115, BUN 28, creatinine 0.8, sodium 135, potassium 4.7, chloride 105, CO2 22, calcium 8.4. CBC with white blood cell count of 13.6, RBC 3.92, hemoglobin 10, hematocrit 31.7, MCV 81.0, MCH 25.4, MCHC 31.4, RDW 19.8, platelets 321, MPV 7.1. Please note the patient's blood culture had no growth times two. Sputum culture was normal respiratory janell. HOSPITAL COURSE The patient is a 66-year-old male with a past medical history of chronic obstructive pulmonary disease, pulmonary fibrosis and scarring, coronary artery disease, peripheral vascular disease. The patient presented to the emergency department due to symptoms of shortness of breath. The patient was hospitalized at this facility from 07/02 to 07/04 for community acquired pneumonia with acute chronic obstructive pulmonary disease Unit #: [id number] #: [id number] Patient: KATHLEEN FAIRBANKS exacerbation. He was discharged without the need for oxygen during the day, but use at night only. He states that he went back to work and was in his usual state of health, but three days prior to admission he started to have symptoms of dyspnea on exertion which was not always present, but would come and go. On the day of admission he had symptoms of numbness in his left hand and pain in his axilla, therefore, presented to the emergency department for further evaluation. In the emergency department he was found to be hypoxic with a pO2 of 76.4 on 50% Venturi mask. CT angiogram of the chest was done, which found no acute PE. The patient was hospitalized for acute exacerbation with acute hypoxic respiratory failure. He was initially started on IV antibiotics and seen in consultation with Dr. Jiang of pulmonary. Legionella as well as strep pneumo antigen were both negative in the urine. Procalcitonin level was 0.14. Due to symptoms of chest pain and dyspnea on exertion with a history of coronary artery disease nuclear stress test was done, which was normal. Two-dimensional echo was also done as well, with results of left ventricular systolic function normal with visually estimated ejection fraction of 50%-55%, moderate septal hypokinesis was noted. Inferior wall hypokinesis was noted. Mild mitral regurgitation is present. Small pericardial effusion versus fat tissue was present. The patient was seen in consultation with Dr. Bui, who felt the patient was stable to be discharged home. At this time the patient is ambulating on room air without desaturating. He is ready to be discharged home, both from pulmonary and cardiology perspectives. He will follow up with Dr. Bui and call their office for a follow-up appointment. He will follow up with Dr. Kingston. Please note that the consolidation in the left lingula is of concern. The patient is to follow up with Dr. Kingston within two weeks. ACTIVITY Not restricted. Resume as per prior to hospitalization with ambulating every day as tolerated. DIET Resume heart healthy diet as per prior to hospitalization. DISCHARGE MEDICATIONS 1. Duo-Neb inhaled q.i.d. p.r.n. shortness of breath. 2. Prednisone under Dr. Peace's recommendation. The patient will be discharged on 40 mg p.o. daily for 2 days, then 30 mg p.o. daily for 2 days, then 20 mg p.o. daily for 2 days, then 10 mg p.o. daily for 2 days. 3. Norvasc 10 mg p.o. daily. 4. Metoprolol 25 mg p.o. daily. 5. Simvastatin 40 mg p.o. at bedtime. 6. Iron gluconate 324 mg p.o. b.i.d. 7. Aspirin 81 mg p.o. daily. 8. Plavix 75 mg p.o. daily. 9. Per cardiology's prescription and recommendation the patient is to start with Imdur extended release 30 mg p.o. daily. 10. Under Dr. Peace's recommendation the patient will also be prescribed Levaquin 750 mg p.o. daily for the next 5 days. Dictated by... Kenia Marcelino PA-C for Anish Lange M.D. Unit #: [id number] #: [id number] Patient: KATHLEEN FAIRBANKS Gallito TP/gz TD: 07/28/2016 08:23 JOB #: [id number] DISCHARGE SUMMARY Page 1 of 1 X X DISCHARGE SUMMARY
--- NOTE | ~2016-07-21 | HP ---
Unit #: [id number] #: [id number] Patient: KATHLEEN FAIRBANKS [id number] [address] [place], [place] [address] [id number] I MR#: [id number] NAME: KATHLEEN FAIRBANKS. ROOM: 69930 Age: 66 Sex: M Admission Date: 07/22/2016 : 1950 Attending Physician: Verónica Mckinnon M.D. Primary Care Physician: Yobany White M.D. HISTORY AND PHYSICAL CHIEF COMPLAINT Respiratory failure. HISTORY This pleasant 66-year-old male with COPD, pulmonary fibrosis, and scarring, CAD, peripheral vascular disease, is admitted for worsening shortness of breath. The patient was last admitted to this facility 07/02/2016 through 07/04/2016 for likely community acquired pneumonia with COPD exacerbation. He did require nocturnal oxygen after discharge. He states that he improved until past two days when he developed a deep cough productive of clear sputum. Yesterday noticed that his O2 sats are running low in the morning but he felt better later in the day until last evening when he developed acute onset of shortness of breath worse with exertion. No definite fevers with the above. He presented to this emergency department late last evening where his O2 saturation was 84% on room air. Chest x-ray and CT scan show progressive/increasing opacities, particularly on the left. In the ER he was treated with Zosyn, vancomycin, and tobramycin. PAST MEDICAL HISTORY 1. CAD with previous MS four years ago requiring stent placement with ejection fraction of 45% to 50%. 2. Essential hypertension. 3. COPD, pulmonary fibrosis and scarring. Patient underwent bronchoscopy 04/2015. No endobronchial lesions were present. Thick mucoid secretion in both lungs, which were suctioned and diffuse hyperemia of the mucosa bilaterally. 4. Hyperlipidemia. 5. GERD. 6. Peripheral vascular disease, status post stents in the right leg. 7. Diverticular disease. 8. Left knee arthroscopic surgery. 9. Vasectomy. ALLERGIES No known drug allergies. HOME MEDICATIONS Lopressor 25 mg daily; Plavix 75 mg daily; aspirin 81 mg daily; Zocor 40 mg daily; DuoNeb q.i.d. as needed; Norvasc 10 mg daily; iron 324 mg b.i.d. FAMILY HISTORY Tuberculosis and CAD. Patient has always tested negative for Unit #: [id number] #: [id number] Patient: KATHLEEN FAIRBANKS tuberculosis. SOCIAL HISTORY The patient lives with his . Has a history of 80 pack year smoking history but stopped smoking seven years ago. Drinks an occasional beer. REVIEW OF SYSTEMS Worsening shortness of breath, cough, CAD, hypertension, COPD, hyperlipidemia, GERD, peripheral vascular disease, diverticular disease, above mentioned surgeries. All other systems were reviewed and are otherwise negative. PHYSICAL EXAMINATION GENERAL: Pleasant, thin, 66-year-old male currently in no acute distress. VITAL SIGNS: Temperature 98.4, pulse 67, respirations 22, blood pressure 145/67, O2 saturation 84% on room air, currently 94% on a 50% Ventimask. HEENT: Eyes - PERRLA, extraocular muscles are intact. Pharynx is benign. NECK: Supple without adenopathy or thyromegaly. CHEST: Diminished breath sounds at the left base. There are anterior wheezes bilaterally. CARDIAC: Normal S1 and S2 without definite murmur. ABDOMEN: Bowel sounds are present. No hepatosplenomegaly, tenderness or masses. EXTREMITIES: Minimal edema. Pedal pulses are diminished. NEUROLOGIC: Patient is awake, alert and oriented. Cranial nerves are intact. Equal strength throughout. DIAGNOSTIC STUDIES ADMISSION LABS: Hematocrit 38.1, white blood count is 11.5, normal platelet count. SMA 12 - normal lactic acid. Negative cardiac markers normal. BNP normal. ABG - pH 7.44, pCO2 38, pO2 70, O2 saturation 92.8% on 4 L. IMAGING STUDIES: Chest x-ray - extensive left lower lobe air space opacity in the lingula and left lower lobes, not changed since 06/2016. CT was negative for PE but shows progressive left lower lobe and lingular infiltrates new or increase in the right lower lobe and superior segments of bilateral upper lobes. CARDIOLOGY STUDIES: Sinus rhythm, rate 84, normal appearing. ASSESSMENT 1. Acute on chronic hypoxic respiratory failure with increasing infiltrates on CT scan. Will certainly cover for possible pneumonia but infiltrates maybe inflammatory. Patient does have fibrosis and scarring along with COPD, which now is exacerbated. 2. CAD with mild LV dysfunction. 3. Peripheral vascular disease. 4. Hypertension. 5. GERD. PLANS 1. Steroids and bronchodilators. Will treat with vancomycin and cefepime. Patient also received 1 dose of tobramycin in the ER, which I will not continue as patient does not appear to be septic. 2. Check procalcitonin level. 3. DVT prophylaxis. Unit #: [id number] #: [id number] Patient: KATHLEEN FAIRBANKS 4. Pulmonary consultation. 5. Florastor. Dictated by Verónica Mckinnon M.D. AML/ts TD: 07/22/2016 05:25 JOB #: [id number] HISTORY AND PHYSICAL Page 1 of 1 X Verónica Mckinnon MD HISTORY AND PHYSICAL
--- NOTE | ~2016-07-21 | CR72 ---
[facility] A Service of [facility] & [facility] RADIOLOGY TEXT RESULTS PATIENT: KATHLEEN FAIRBANKS LOCATION: [facility] 308-01 : [birth year] UNIT #: [id number] AGE: [address]: Anish Lange MD SEX: M ORDER DR: [id number] [facility] [address] [place], [place] [address] [id number] I MR#: [id number] Acc #: [id number] NAME: KATHLEEN FAIRBANKS. : 1950 SEX: M STUDY DATE/TIME: 07/21/2016 23:03 [facility] RO[facility] 95535 STUDY DESCRIPTION: CR Chest Single View Portable Attending Physician: Verónica Mckinnon M.D. Ordering Physician: Terrie Stacy M.D. Primary Care Physician: Yobany White M.D. MEDICAL IMAGING REPORT This report is preliminary unless electronic signature is present EXAM Portable chest HISTORY Shortness of air chest pain beginning 2 days ago COMPARISON 07/01/2016 FINDINGS AP portable view of the chest demonstrates extensive airspace opacity left lower lobe with some obscuration of the heart margin and left hemidiaphragm suggesting a possible lingular and left lower lobe infiltrate. This is not significantly changed from the chest radiograph of 07/01/2016. Changes are superimposed on background emphysema. Heart and mediastinum unremarkable. No sizeable effusion. Recommend clinical and radiographic follow up to resolution after appropriate medical treatment. Dictated by... Amanda Yepez M.D. THIS IS AN ELECTRONICALLY VERIFIED REPORT Amanda Yepez M.D. at 07/23/2016 10:35 PM MARCO/augustin TD: 07/22/2016 06:01 JOB #: [id number] MEDICAL IMAGING REPORT Page 1 of 1 COPY
[~2016-07-21 22:25] MED LIST changes: +FERROUS GLUCON324 M1 PO; +IPRAT-ALBUT 0.5-3 ML INH; +NORVASC10 MG PO; +PREDNISONE10 M1 PO
[2016-07-21 23:15] LABS: ARTERIAL BLD GAS O2 SATURATION 92.8 % (90.0-100.0); ARTERIAL BLOOD GAS CARBOXY HB 1.6 %sat (0.0-9.0); ARTERIAL BLOOD GAS HCO3 26.2 mmol/L; ARTERIAL BLOOD GAS MET HB 0.9 %sat (0.0-2.0); ARTERIAL BLOOD GAS PCO2 38.4 mmHg (35.0-45.0); ARTERIAL BLOOD GAS pH 7.443 (7.350-7.450)
[2016-07-21 23:17] LABS: ARTERIAL BLOOD GAS ALLEN TEST NORMAL; ARTERIAL BLOOD GAS ART SITE LEFT RADIAL; ARTERIAL BLOOD GAS DELIVERY NASAL CANNULA; ARTERIAL BLOOD GAS PO2 70.5 mmHg (80.0-100); ARTERIAL DRAW? YES
[2016-07-21 23:21] LABS: BASOPHIL# 0.1 X10e3 (0-0.3); BASOPHIL% 0.6 % (0-2.5); EOSINOPHIL# 0.2 X10e3 (0-0.7); EOSINOPHIL% 1.9 % (0.0-7.0); HEMATOCRIT 38.1 % (38.0-50.0); HEMOGLOBIN 11.8 gm/dL (13.0-16.0); LYMPHOCYTE# 2.2 X10e3 (1.0-3.5); LYMPHOCYTE% 18.7 % (17.0-45.0); MEAN CELL VOLUME 82.3 FL (83-96); MEAN CORPUSCULAR HEMOGLOBIN 25.4 PG (28-34); MEAN CORPUSCULAR HGB CONC 30.9 g/dL (30-36); MEAN PLATELET VOLUME 7.3 FL (6.5-11.5); MONOCYTE# 0.7 X10e3 (0-1.0); MONOCYTE% 6.4 % (3.0-12.0); NEUTROPHIL# 8.3 X10e3 (1.5-7.1); NEUTROPHIL% 72.4 % (40-75); PLATELET COUNT 353 X10e3 (140-420); RED BLOOD COUNT 4.63 X10e (3.90-5.60); RED CELL DISTRIBUTION WIDTH 20.2 % (11.0-15.5); WHITE BLOOD COUNT 11.5 X10e3 (4.0-10.5)
[2016-07-21 23:22] LABS: DIFF IND NO
[2016-07-21 23:29] LABS: POC - CKMB 3.4 ng/mL (0.0-7.9); POC - TROPONIN <0.05 ng/mL (<=0.05)
[2016-07-21 23:44] LABS: ALBUMIN SERUM 3.8 g/dL (3.5-5.0); BILIRUBIN, DIRECT 0.1 mg/dL (0.0-0.2); BILIRUBIN,INDIRECT 0.3 mg/dL (0.0-0.9); BILIRUBIN,TOTAL 0.4 mg/dL (0.2-2.0); BUN/CREATININE RATIO 22.5; CALCIUM SERUM 9.1 mg/dL (8.4-10.2); CREATININE SERUM 0.8 mg/dL (0.6-1.4); GLOM FILT RATE Estimated 93.1 mL/min (>60); POTASSIUM 3.9 mmol/L (3.5-5.1)
[2016-07-22 01:28] LABS: POC - CKMB 1.7 ng/mL (0.0-7.9); POC - TROPONIN <0.05 ng/mL (<=0.05)
[2016-07-22 05:51] LABS: BASOPHIL% 0.4 % (0-2.5); EOSINOPHIL# 0.2 X10e3 (0-0.7); EOSINOPHIL% 2.3 % (0.0-7.0); HEMOGLOBIN 11.2 gm/dL (13.0-16.0); LYMPHOCYTE# 2.2 X10e3 (1.0-3.5); MEAN CELL VOLUME 82.3 FL (83-96); MEAN CORPUSCULAR HEMOGLOBIN 25.5 PG (28-34); MEAN PLATELET VOLUME 7.6 FL (6.5-11.5); MONOCYTE# 1.1 X10e3 (0-1.0); MONOCYTE% 9.7 % (3.0-12.0); NEUTROPHIL# 7.4 X10e3 (1.5-7.1); NEUTROPHIL% 67.6 % (40-75); PLATELET COUNT 338 X10e3 (140-420); RED BLOOD COUNT 4.38 X10e (3.90-5.60); RED CELL DISTRIBUTION WIDTH 19.5 % (11.0-15.5); WHITE BLOOD COUNT 10.9 X10e3 (4.0-10.5)
[2016-07-22 05:54] LABS: ARTERIAL BLD GAS O2 SATURATION 93.9 % (90.0-100.0); ARTERIAL BLOOD GAS CARBOXY HB 1.3 %sat (0.0-9.0); ARTERIAL BLOOD GAS HCO3 23.1 mmol/L; ARTERIAL BLOOD GAS PCO2 37.3 mmHg (35.0-45.0); ARTERIAL BLOOD GAS pH 7.401 (7.350-7.450)
[2016-07-22 05:55] LABS: ARTERIAL BLOOD GAS ALLEN TEST NORMAL; ARTERIAL BLOOD GAS ART SITE LEFT RADIAL; ARTERIAL BLOOD GAS DELIVERY VENTURI; ARTERIAL BLOOD GAS PO2 76.4 mmHg (80.0-100); ARTERIAL DRAW? YES
[2016-07-22 05:55] LABS: DIFF IND NO
[2016-07-22 06:39] LABS: BUN/CREATININE RATIO 21.42; CALCIUM SERUM 8.4 mg/dL (8.4-10.2); CREATININE SERUM 0.7 mg/dL (0.6-1.4); GLOM FILT RATE Estimated 98.4 mL/min (>60); POTASSIUM 4.8 mmol/L (3.5-5.1)
[2016-07-22 07:24] LABS: PROCALCITONIN 0.22 NG/ML
[2016-07-23 04:31] LABS: HEMOGLOBIN 10.7 gm/dL (13.0-16.0); MEAN CELL VOLUME 81.3 FL (83-96); MEAN CORPUSCULAR HEMOGLOBIN 25.5 PG (28-34); MEAN CORPUSCULAR HGB CONC 31.4 g/dL (30-36); MEAN PLATELET VOLUME 7.5 FL (6.5-11.5); RED BLOOD COUNT 4.18 X10e (3.90-5.60); RED CELL DISTRIBUTION WIDTH 19.5 % (11.0-15.5); WHITE BLOOD COUNT 12.5 X10e3 (4.0-10.5)
[2016-07-23 04:57] LABS: CALCIUM SERUM 8.8 mg/dL (8.4-10.2); CREATININE SERUM 0.8 mg/dL (0.6-1.4); GLOM FILT RATE Estimated 93.1 mL/min (>60); MAGNESIUM 2.4 mg/dL (1.6-3.0); POTASSIUM 4.9 mmol/L (3.5-5.1)
[2016-07-24 06:18] LABS: LEGIONELLA AG URINE NEG (NEG)
[2016-07-25 06:36] LABS: HEMATOCRIT 31.7 % (38.0-50.0); MEAN CORPUSCULAR HEMOGLOBIN 25.4 PG (28-34); MEAN CORPUSCULAR HGB CONC 31.4 g/dL (30-36); MEAN PLATELET VOLUME 7.2 FL (6.5-11.5); RED BLOOD COUNT 3.92 X10e (3.90-5.60); RED CELL DISTRIBUTION WIDTH 19.8 % (11.0-15.5); WHITE BLOOD COUNT 13.6 X10e3 (4.0-10.5)
[2016-07-25 07:11] LABS: CALCIUM SERUM 8.4 mg/dL (8.4-10.2); CREATININE SERUM 0.8 mg/dL (0.6-1.4); GLOM FILT RATE Estimated 93.1 mL/min (>60); POTASSIUM 4.7 mmol/L (3.5-5.1)
[2016-07-25] MEDS ORDERED: LEVAQUIN750 M1 PO (10:19)
[2016-07-25] MEDS ORDERED: ISOSORBIDE MONO30 M1 PO (10:19)
[2016-07-25] MEDS ORDERED: PREDNISONE10 M1 PO (10:21)
== END 2016-07-25 11:08 | disposition home or self-care (01) | DRG 189 ==
LOC: CED 22:25 → C3A PCU 07-22 04:30 → CEDOF 07-22 04:30 → CED 07-22 04:34 → C3A PCU 07-22 04:34 → CEDOF 07-22 04:34 → C3A PCU 07-22 07:36 → CEDOF 07-22 07:36 → C3A PCU 07-22 16:30 → CED 07-22 16:30 → CEDOF 07-22 16:30 → C3A PCU 07-25 11:08
PROVIDERS: Emergency Medicine; Internal Medicine; Internal Medicine Pulmonary Disease; Student in an Organized Health Care Education/Training Program
PROC: B32TYZZ Computerized Tomography (CT Scan) of Left Pulmonary Artery using Other Contrast (ICD-10-PCS; principal; 2016-07-22)
PROC: B32SYZZ Computerized Tomography (CT Scan) of Right Pulmonary Artery using Other Contrast (ICD-10-PCS; 2016-07-22)
PROC: B24BYZZ Ultrasonography of Heart with Aorta using Other Contrast (ICD-10-PCS; 2016-07-23)
DX: J96.21 Acute and chronic respiratory failure with hypoxia (principal); J84.10 Pulmonary fibrosis, unspecified; J44.1 Chronic obstructive pulmonary disease with (acute) exacerbation; Z99.81 Dependence on supplemental oxygen; I25.10 Atherosclerotic heart disease of native coronary artery without angina pectoris; I73.9 Peripheral vascular disease, unspecified; I10 Essential (primary) hypertension; K21.9 Gastro-esophageal reflux disease without esophagitis; Z95.5 Presence of coronary angioplasty implant and graft; I25.2 Old myocardial infarction; R07.9 Chest pain, unspecified
CPT/HCPCS: 36415; 36600; 71010; 71275; 78452; 80048; 80061; 80076; 80202; 82308; 82550; 82553; 82607; 82803; 83605; 83735; 83880; 84484; 85025; 85027; 85379; 87040; 87070; 87205; 87449; 87633; 87899; 93005; 93017; 93306; 94640; 94760; 96365; 99285; A9500; J0692; J1650; J1940; J2543; J2785; J2920; J3260; J3370; Q9967

== ENCOUNTER → 2016-10-23 | Outpatient (CLI) | payer MEDICARE, BC ==
[~2016-10-23] MED LIST changes: +ISOSORBIDE MONO30 M1 PO; +LEVAQUIN250 MG PO; +LINEZOLID600 MG PO
--- NOTE | ~2016-10-23 | CT57 ---
[facility] A Service of [facility] & [facility] RADIOLOGY TEXT RESULTS PATIENT: KATHLEEN FAIRBANKS LOCATION: [facility] : 50 UNIT #: [id number] AGE: [address]: Rowena Shabazz SEX: M ORDER DR: [id number] [facility] [address] [place], [place] [address] [id number] O MR#: [id number] Acc #: [id number] NAME: KATHLEEN FAIRBANKS : 1950 SEX: M STUDY DATE/TIME: 10/23/2016 18:14 UNIT: [facility] ROOM: STUDY DESCRIPTION: CT Chest Wo Cont Attending Physician: Rowena Shabazz A.P.R.N. Referring Physician: Rowena Shabazz A.P.R.N. Ordering Physician: Rowena Shabazz A.P.R.N. Primary Care Physician: Yobany White M.D. MEDICAL IMAGING REPORT This report is preliminary unless electronic signature is present EXAM CT chest without contrast, 10/23/2016, 1814 hours. HISTORY 66-year-old man complains of shortness of air for 3 years worsening since May. Chronic cough. History of pneumonia in May and June 2016. COMPARISON CT angiogram of the chest, 07/22/2016; chest x-ray 08/12/2016 TECHNIQUE Helical noncontrasted images were obtained from the lung bases through the pubic symphysis. Sagittal and coronal reconstructions were performed. Total exam DLP 690 mGy-cm. This CT exam was performed with one or more of the following radiation dose reduction techniques: automatic exposure control, adjustment of mA and/or kV according to patient size, and iterative reconstruction. FINDINGS Images through the thoracic inlet demonstrate normal thyroid gland. Images through the chest demonstrates stable ectasia of the thoracic aorta. Pulmonary arteries are at the upper limits of normal. There are coronary calcifications. There is no pericardial fluid and no right pleural fluid. There is trace pleural fluid on the left. Patient has underlying centrilobular emphysema in the upper lobes. There is persistent abnormal appearance to the lingular segment of the left upper lobe where is dense somewhat nodular consolidation and there is diffuse reticular interstitial change throughout the left upper lobe with patchy airspace density peripheral to this in the lingula. This finding has been present for several years but is progressive. There is also progression of multifocal airspace change in the left lower lobe diffusely initially began on CT study of 01/09/2015, but significantly increased STS. [facility] A Service of [facility] & [facility] RADIOLOGY TEXT RESULTS PATIENT: KATHLEEN FAIRBANKS LOCATION: [facility] : 50 UNIT #: [id number] AGE: [address]: Rowena Shabazz SEX: M ORDER DR: with both interstitial and airspace change and air bronchograms more medially than laterally. There has been progression of the airspace somewhat nodular change, in the right lower lobe with associated ground-glass changes. There is new peribronchiolar ground-glass and irregularly marginated rounded densities in the right middle lobe and right upper lobe not present on the most recent available CT 07/22/2016. This is a chronic process ongoing in the lungs with clear progression bilaterally with progression of previously identified areas and new areas in the right upper lobe and right middle lobe. If this is infectious, it would represent atypical organisms. Other entities including bronchiolitis obliterans with organizing pneumonia, vasculitis, Pat's granulomatosis should be considered. The presence of malignancy has not been excluded. If the patient has not had recent bronchoscopy or tissue sampling of the lung, this would be recommended. Limited views through the upper abdomen demonstrate no liver or adrenal lesion. There is an intrarenal nonobstructing stone in the left kidney. IMPRESSION There is interval progression of the previously demonstrated areas of abnormal airspace and interstitial change in the left upper lobe, the left lower lobe and the right lower lobe. There are new poorly defined ground-glass nodular areas in a peribronchiolar distribution in the right upper lobe and right middle lobe. The process in the left upper lobe began at least in 2014 and has never resolved. It is clearly progressive as well as progressive change in the left lower lobe and right lower lobe. The findings likely do not represent a simple pneumonia. Differential considerations would include atypical infections including mycobacterial infection. Other entities including bronchiolitis obliterans with organizing pneumonia, vasculitis, Pat's granulomatosis should be considered. The presence of bronchoalveolar cell carcinoma cannot be excluded based on this appearance. If the patient has not had received recent bronchoscopy and/or tissue sampling for diagnostic purposes this would be recommended. These findings have clearly progressed since July 22, 2016, CT. STAT * RESULT Dictated by... Mikala Martinez M.D. THIS IS AN ELECTRONICALLY VERIFIED REPORT Mikala Martinez M.D. at 10/24/2016 2:30 PM WILI/namrata TD: 10/24/2016 11:37 JOB #: [id number] MEDICAL IMAGING REPORT [facility] A Service of [facility] & [facility] RADIOLOGY TEXT RESULTS PATIENT: KATHLEEN FAIRBANKS LOCATION: [facility] : 50 UNIT #: [id number] AGE: [address]: Rowena Shabazz SEX: M ORDER DR: Page 1 of 1 COPY
== END | disposition home or self-care (01) ==
LOC: CCAT 17:55
DX: J18.9 Pneumonia, unspecified organism (principal); R93.8 Abnormal findings on diagnostic imaging of other specified body structures
CPT/HCPCS: 71250

== ENCOUNTER → 2016-11-03 | Day surgery (SDC) | payer MEDICARE, BC ==
--- NOTE | ~2016-11-03 | OR ---
Unit #: [id number] #: [id number] Patient: KATHLEEN FAIRBANKS [id number] [facility]. [place], [place] [address] [id number] O MR#: [id number] NAME: KATHLEEN FAIRBANKS. ROOM: Date of Procedure: 11/03/2016 Admission Date: 11/03/2016 Surgeon: Matty Kingston M.D. : 1950 Attending Physician: Matty Kingston M.D. Primary Care Physician: Yobany White M.D. OPERATIVE REPORT PROCEDURE PERFORMED Bronchoscopy. INDICATION Left pneumonia worsening. PREOPERATIVE DIAGNOSIS Left pneumonia worsening. INTRAOPERATIVE FINDINGS Frothy white secretions mostly left, but little bit on the right. POSTOPERATIVE DIAGNOSIS Left-sided pneumonia worsening. DESCRIPTION OF PROCEDURE Mr. Fairbanks is a 66-year-old male, seen by my nurse practitioner in the office. He had been apparently admitted I assume in June and had a CAT scan with a left upper lobe and left lower lobe infiltrate. Repeat CAT scan ordered by my nurse practitioner revealed that not only was the infiltrate not better, but it probably was a bit worse. Bronchoscopy was set up for this reason. He was brought to endoscopy. He is on Plavix, but had to held for 5 days. We were not initially set up for fluoroscopy, so I did not proceed with a transbronchial biopsy. He was given sedation via a MAC by the anesthesiologist and scope was done through a bite block. The vocal cords were within normal limits. Trachea was within normal limits. Although, he had frothy white secretions everywhere, less in the trachea than in the left side. There were no endobronchial lesions, right upper lobe, right middle lobe, and right lower lobe. This was a good look and I did some extra washings in the right lower lobe because he has a little bit of infiltrate there also. On the left, the left upper lobe including the lingula are completely without endobronchial lesions. Nonetheless, washing was done at left upper lobe lower division, which is the lingula. Washing was also done in the left lower lobe, but I did not wash as much there because I plan to do a BAL. Brushing was done in the lingula inferior segment. Only a Teeny bit of ooze of blood was noted from that. The specimen trap was changed and full BAL was done in the left lower lobe. 120 mL with return of 54, which was actually a fairly good return. He tolerated the procedure, but he did have some hypoxemia, which is certainly imaginable given the degree of airspace disease. Please note that I discuss possible parameters of admission with him and I actually suggested admitting him postop, but he is a little reluctant. I Unit #: [id number] #: [id number] Patient: KATHLEEN FAIRBANKS did make a deal that if he cannot be oxygenated on 2 L, which is what he has at home that we would keep him. Dictated by... Lula Alvarez/camille TD: 11/04/2016 02:54 JOB #: [id number] OPERATIVE REPORT Page 1 of 1 X Matty Kingston MD PROCEDURE OPERATIVE NOTE
[2016-11-03 13:06] LABS: BODY FLUID SOURCE BRONCHIAL LAVAGE
[2016-11-03 13:07] LABS: BODY FLUID APPEARANCE CLEAR
[2016-11-03 13:09] LABS: BF TOTAL NUCLEATED CELL COUNT 420 CMM (0-100); BODY FLUID RBC <10000 CMM
== END | disposition home or self-care (01) ==
LOC: COPS 10-31 11:00
PROVIDERS: Internal Medicine Pulmonary Disease
DX: J18.9 Pneumonia, unspecified organism (principal); I25.2 Old myocardial infarction; Z87.442 Personal history of urinary calculi; Z87.891 Personal history of nicotine dependence; Z79.02 Long term (current) use of antithrombotics/antiplatelets; Z79.82 Long term (current) use of aspirin; Z79.899 Other long term (current) drug therapy; Z95.5 Presence of coronary angioplasty implant and graft; Z99.81 Dependence on supplemental oxygen; Z98.52 Vasectomy status
CPT/HCPCS: 87070; 87102; 87106; 87116; 87205; 87206; 87252; 87254; 88104; 88108; 88305; 88312; 89051; J0171; J0696

== ENCOUNTER 2016-11-10 22:27 | Inpatient (IN) | payer MEDICARE, BC ==
[~2016-11-10] VITALS: Ht 177.8 cm; Wt 81.2 kg
--- NOTE | ~2016-11-10 | CR72 ---
[facility] A Service of [facility] & [facility] RADIOLOGY TEXT RESULTS PATIENT: KATHLEEN FAIRBANKS LOCATION: [place] [address]14 : 50 UNIT #: [id number] AGE: [address]: Valente Peace MD SEX: M ORDER DR: [id number] [facility] [address] [place], [place] [address] [id number] I MR#: [id number] Acc #: [id number] NAME: KATHLEEN FAIRBANKS. : 1950 SEX: M STUDY DATE/TIME: 11/13/2016 4:39 UNIT: [facility] ROOM: [facility] STUDY DESCRIPTION: CR Chest Single View Portable Attending Physician: Valente Peace Ordering Physician: Tika Peace M.D. Primary Care Physician: Yobany White M.D. MEDICAL IMAGING REPORT This report is preliminary unless electronic signature is present EXAM Portable chest HISTORY Respiratory failure and COPD. Shortness of air for 2 days. FINDINGS Compared to yesterday there has been no significant interval change in the moderately dense infiltrate in the left base. There may also be mild superimposed atelectasis in the left base. Mild hyperinflation of both lungs. Cardiac and mediastinal contours are stable. No new infiltrates. Dictated by... Lucho Mojica M.D. THIS IS AN ELECTRONICALLY VERIFIED REPORT Lucho Mojica M.D. at 11/13/2016 6:27 AM VINNY/ryan TD: 11/13/2016 05:05 JOB #: [id number] MEDICAL IMAGING REPORT Page 1 of 1 COPY
--- NOTE | ~2016-11-10 | HP ---
Unit #: [id number] #: [id number] Patient: KATHLEEN FAIRBANKS [id number] [facility]. [place], [place] [address] [id number] I MR#: [id number] NAME: KATHLEEN FAIRBANKS. ROOM: [facility] Age: 66 Sex: M Admission Date: 11/11/2016 : 1950 Attending Physician: Tika Peace M.D. Primary Care Physician: Yobany White M.D. HISTORY AND PHYSICAL The patient is a 66-year-old gentleman with a past medical history of COPD and recurrent bronchitis. Patient was here for a bronchoscopy approximately six days ago for chronic COPD. The patient stated that his shortness of breath just progressed gradually becoming more and more short or breath. Eventually the patient was required, called the ambulance and presented to the emergency room. He denied any fevers, chills, nausea, vomiting and diarrhea. He stated that he had cough productive of significant amounts of white sputum and as this is his third admission for shortness of breath, the patient was placed on community acquired organisms with Rocephin and azithromycin. The patient now has a left lower lobe infiltrate. Previously he had a bilateral basal infiltrate. He was requiring BiPAP but is able to take it off and takes sips of clears. We will slowly advance diet as tolerated. REVIEW OF SYSTEMS As per the history of present illness. PAST MEDICAL HISTORY Significant for coronary artery disease, previous RI approximately four years ago. Ejection fraction 40% to 50%, COPD, hyperlipidemia, GERD, peripheral vascular disease and diverticular disease. PAST SURGICAL HISTORY Significant for vasectomy. Right lower extremity stent. Left knee arthroscopic surgery and cardiac stent. ALLERGIES No known medical allergies. HOME MEDICATIONS Metoprolol tartrate 25 mg every evening; Plavix 75 mg every day; aspirin 81 mg a day; simvastatin 40 mg a day; ipratropium albuterol 3 mL inhaled four times daily; Norvasc 10 mg p.o. every evening. FAMILY HISTORY Significant for tuberculosis coronary disease. The patient lives with his . Currently ill. He has an 80 pack year history of smoking. Stopped smoking seven years ago. Occasional alcohol. PHYSICAL EXAMINATION VITAL SIGNS: T. current 98.6, pulse 115, respiratory 17, sat 82% on 3 to 4 L nasal cannula, blood pressure 137/64. HEENT: Extraocular movements are intact. Pupils equal, round, reactive to light. Patient is wearing a BiPAP mask. Unit #: [id number] #: [id number] Patient: KATHLEEN FAIRBANKS CHEST: Chest shows decreased breath sounds bilaterally. LUNGS: Shows no accessory muscle use. ABDOMEN: Soft, nontender, nondistended. EXTREMITIES: No evidence of edema. The labs show bronchial cultures are still pending. Viral cultures are still pending. Blood gas 7.43, 34, and 125. Cardiac enzymes negative x2. White count 32.3, hemoglobin 16.2, platelets of 255. BUN and creatinine is 17 and 1.2, AST 47, ALT 25. Otherwise liver function test within normal; therefore, patient is going to be admitted for treatment of community acquired pneumonia. We are going to try to get sputum culture and continue BiPAP. See if patient can be started on a clear liquid diet. Dictated by Lula Zimmerman/leon TD: 11/13/2016 06:12 JOB #: [id number] HISTORY AND PHYSICAL Page 1 of 1 X Valente Peace MD HISTORY AND PHYSICAL
--- NOTE | ~2016-11-10 | DS ---
Unit #: [id number] #: [id number] Patient: KATHLEEN FAIRBANKS [id number] [place], [place] [address] [id number] I MR#: [id number] NAME: KATHLEEN FAIRBANKS. ROOM: 325 Age: 66 Sex: M Admission Date: 11/11/2016 : 1950 Discharge Date: 11/19/2016 Attending Physician: Tika Peace M.D. Primary Care Physician: Yobany White M.D. DISCHARGE SUMMARY DISCHARGE DIAGNOSES 1. Left lower lobe pneumonia. 2. History of recurrent pneumonias. 3. Chronic obstructive pulmonary disease. 4. Chronic obstructive pulmonary disease exacerbation. 5. Acute on chronic respiratory failure. CAMPUS AIDE Dr. Dumont from Infectious Disease. HISTORY OF PRESENT ILLNESS Mr. Kathleen Fairbanks is a pleasant 66-year-old gentleman with a past medical history of COPD, recurrent bronchitis, and third admission this year for shortness of air. Patient presented and was started on antibiotics, as well as fluids and steroids, and feels better. On most recent admission, he had a bronchoscopy done by Dr. Kingston for his chronic COPD which has not grown anything out. Patient was having a little bit of chills but negative growth. Patient was planning on going for lung biopsy. However, his breathing got worse. He has been on antibiotics since last visit. However, he noticed he was having increased swelling around the throat area. Denied any fevers, chills, nausea, vomiting, or diarrhea. Lives in an older house with . He does have some dogs and is chronically exposed to them. No occupational exposure. 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 HOSPITAL COURSE [facility] Carmelina tropicalis. Infectious Disease was consulted. They changed the antibiotics to Zyvox and meropenem. Patient had a slow but progressive improvement in the symptoms. Therefore, on hospital day seven, patient was discharged back to home to follow up with Dr. Kingston in approximately two weeks. DISCHARGE MEDICATIONS 1. Levaquin 750 mg once daily for 12 days. 2. Zyvox 600 mg twice daily for 12 days. 3. Amlodipine 10 mg every morning. 4. Metoprolol 25 mg every evening. 5. Simvastatin 40 mg every evening. 6. Aspirin 81 mg every evening. 7. DuoNebs 4 times daily as needed for air. 8. Prednisone 40 mg x2 days, 30 mg x2 days, 20 mg x2 days, 10 mg x2 days. 9. Plavix 75 mg every evening. DIET Regular as tolerated. Unit #: [id number] #: [id number] Patient: KATHLEEN FAIRBANKS FOLLOWUP With Dr. Kingston in (1) weeks. Dictated by... Lula Zimmerman TD: 11/24/2016 15:57 JOB #: [id number] DISCHARGE SUMMARY Page 1 of 1 X Valente Peace MD X DISCHARGE SUMMARY
--- NOTE | ~2016-11-10 | CR72 ---
[facility] A Service of [facility] & [facility] RADIOLOGY TEXT RESULTS PATIENT: KATHLEEN FAIRBANKS LOCATION: [place] [address]14 : 50 UNIT #: [id number] AGE: [address]: Valente Peace MD SEX: M ORDER DR: [id number] [facility] [address]. [place], [place] [address] [id number] I MR#: [id number] #: [id number] NAME: KATHLEEN FAIRBANKS. : 1950 SEX: M STUDY DATE/TIME: 11/12/2016 4:45 UNIT: [facility] ROOM: [facility] STUDY DESCRIPTION: CR Chest Single View Portable Attending Physician: Valente Peace Ordering Physician: Tika Peaec M.D. Primary Care Physician: Yobany White M.D. MEDICAL IMAGING REPORT This report is preliminary unless electronic signature is present EXAM Portable chest HISTORY Respiratory failure for 1 day. FINDINGS Compared to yesterday there has been no significant change in the moderate infiltrate in the left lower lung. No new infiltrates. Bilateral emphysema. Cardiac and mediastinal contours are stable. Dictated by... Lucho Mojica M.D. THIS IS AN ELECTRONICALLY VERIFIED REPORT Lucho Mojica M.D. at 11/12/2016 10:07 PM VINNY/sandro TD: 11/12/2016 08:38 JOB #: [id number] MEDICAL IMAGING REPORT Page 1 of 1 COPY
--- NOTE | ~2016-11-10 | EKG ---
PATIENT: KATHLEEN FAIRBANKS UNIT #: [id number] Ventricular Rate: 110 BPM Atrial Rate: 110 BPM P-R Interval: 126 ms QRS Duration: 84 ms Q-T Interval: 304 ms QTC Calculation(Bezet): 411 ms P [place]: 41 degrees Calculated R [place]: -9 degrees Calculated T [place]: 86 degrees Diagnosis Line: Sinus tachycardia Diagnosis Line: Inferior infarct (cited on or before 11-NOV-2016) Diagnosis Line: Abnormal ECG Diagnosis Line: When compared with ECG of 11-NOV-2016 01:54, Diagnosis Line: (unconfirmed) Diagnosis Line: No significant change was found Diagnosis Line: Confirmed by ARYAN RENNER MD ([id number]) on 11/12/2016 Diagnosis Line: 7:28:06 AM INTERPRETING MD: ZURDO SANTOS
--- NOTE | ~2016-11-10 | DS ---
Unit #: [id number] #: [id number] Patient: KATHLEEN FAIRBANKS [id number] [place], [place] [address] [id number] I MR#: [id number] NAME: KATHLEEN FAIRBANKS. ROOM: 325 Age: 66 Sex: M Admission Date: 11/11/2016 : 1950 Discharge Date: 11/19/2016 Attending Physician: Tika Peace M.D. Primary Care Physician: Yobany White M.D. DISCHARGE SUMMARY FINAL DIAGNOSIS Left pneumonia, recurrent. OTHER DIAGNOSES 1. Chronic obstructive pulmonary disease with exacerbation. 2. Hypertension. 3. Hypercholesterolemia. CONSULTANTS Consultants include Dr. Musa. PROCEDURE CT chest. Mr. Fairbanks is a patient that I have known through the office who has seen my nurse practitioner and seemed to have a progressive left lung infiltrate. This had worsened since July and, therefore, bronchoscopy was done by me. I did not do a transbronchial biopsy. Cultures have been negative so far. He was initially sent home on oral antibiotic. He presented back with increasing shortness of air and was admitted. He was started on IV steroids, and ID was consulted and he was started on meropenem and Zyvox and Zithromax. He is doing better and he really wants to go home but he is still on meropenem and Zyvox and Zithromax, all IV. I have put in a call to the ID consultants about whether they would be okay with switching to oral. If they switch to oral, I would presume we would give him doxycycline as he is cephalosporin allergic. He would go home on the following medicines: 1. Prednisone 40 mg p.o. daily decreasing by 10 mg at 1 week and then we would slowly decrease from there. 2. Metoprolol 25 mg p.o. every day in the evening. 3. Plavix 75 mg p.o. daily. 4. Aspirin 81 mg p.o. daily. 5. Simvastatin 40 mg p.o. q. evening. 6. Albuterol and Atrovent mini nebs q.i.d. p.r.n. 7. Norvasc 10 mg p.o. daily. He would be on doxycycline unless they suggested different antibiotics 100 mg p.o. b.i.d. Activity will be as tolerated and he should follow with me as scheduled. He would actually follow up with me in a couple of weeks. I had already referred him for consideration of video-assisted thoracoscopic biopsy. We would plan on continuing to go through with that. Unit #: [id number] #: [id number] Patient: KATHLEEN FAIRBANKS Dictated by... Lula Alvarez/cristina TD: 11/20/2016 06:09 JOB #: [id number] DISCHARGE SUMMARY Page 1 of 1 X Matty Kingston MD X DISCHARGE SUMMARY
--- NOTE | ~2016-11-10 | CO ---
Unit #: [id number] #: [id number] Patient: KATHLEEN FAIRBANKS [id number] [facility]. [place] [id number] [facility]. [place], [place] [address] [id number] I MR#: [id number] NAME: KATHLEEN FAIRBANKS. ROOM: [facility] Age: 66 Sex: M Admission Date: 11/11/2016 : 1950 Attending Physician: Tika Peace M.D. Primary Care Physician: Yobany White M.D. CONSULTATION REPORT REASON FOR CONSULTATION Possibly Carmelina pneumonia. HISTORY OF PRESENT ILLNESS Mr. Fairbanks is a pleasant, 66-year-old gentleman with a past medical history of COPD and recurrent bronchitis. He stated this is his third admission this year for shortness of air. Stated that he comes in for admission and was started on antibiotics as well as some fluids and steroids and he fells better for a couple of weeks and then continues to have recurring shortness of air. On this most recent admission, he had a bronch done by, I believe, Dr. Kingston about two weeks ago for his chronic COPD. He stated that he was becoming more short of breath as well as having a little bit of chills. Bronch from two weeks ago was showing cultures with negative growth. He stated that he was planning to go for lung biopsy this past Thursday, but his breathing began to get worse and so he went into the emergency room. He has been on antibiotics since his office visit, he is not sure which one, but at the time he said that he was taking it and he noticed that he was having a little bit of increased swelling around his throat area. He denied any fevers. Did complain of some chills. Denied any nausea, vomiting, diarrhea, or chest pain or dysuria. He states that he does have a productive cough with just clear white sputum. He currently lives in an older house with his . He does have some dogs. 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 He is a former smoker who quit a long time ago. According to his chest x-ray, there is a left lower lobe infiltrate. He is currently on Oxymizer. He has been started on Rocephin and azithromycin. We are now being consulted for (1) cultures, which apparently grew Carmelina tropicalis. REVIEW OF SYSTEMS All negative, except for those stated in the HPI. PAST MEDICAL HISTORY Significant for coronary artery disease, previous NE, ejection fraction of 40-50, COPD, hyperlipidemia, GERD, peripheral vascular disease, and diverticular disease. PAST SURGICAL HISTORY Significant for vasectomy, right lower extremity stent, left knee arthroscopic surgery, and cardiac stent. ALLERGIES No known allergies, although it is listed for an allergy to Ceftin, and patient is unsure if he really does have a true allergy. Unit #: [id number] #: [id number] Patient: KATHLEEN FAIRBANKS MEDICATIONS Current medications reviewed. Patient is currently on azithromycin and Rocephin. FAMILY HISTORY Noncontributory. SOCIAL HISTORY Patient lives with his . He stopped smoking about seven years ago. Occasional alcohol use. He does live in an older house. He is not around any farm animals, although he does have a dog. PHYSICAL EXAMINATION GENERAL: Awake, alert, and oriented. CURRENT VITAL SIGNS: Temperature is 97.4, heart rate is 75, respirations 18, blood pressure 105/62. HEAD, EARS, EYES, NOSE, AND THROAT: Normocephalic. Pupils equal, round, and reactive to light. CHEST: Diminished throughout, left lobe more coarse. Nonlabored, shallow, patient on Oxymizer. No accessory muscles in use. ABDOMEN: Soft, nontender, positive bowel sounds. EXTREMITIES: Clean, dry, and intact. No edema. DIAGNOSTIC STUDIES DIAGNOSTIC IMAGING: CT chest from October 23 with interval progression of previously demonstrated areas of abnormal airspace and interstitial changes in left upper lobe, the left lower lobe, and the right lower lobe. New poorly defined ground-glass nodular areas in the peribronchiolar distribution in the right upper lobe and the right middle lobe. Chest x-ray this admission was moderate extensive infiltrate in the left lower lung, greater in the left base, which is similar to the CT chest from October 23. LABORATORY DATA: Glucose is 158, BUN is 25, creatinine 0.8, sodium is 134, chloride is 99. White count is 20.3, hemoglobin 14.7, platelets 252. Current blood cultures are pending. Current sputum culture this admission with moderate gram-positive cocci in pairs and chains and many budding yeast. TB culture from previous bronch from June of this year is negative. OTHER: November 03, with culture with normal respiratory janell. ASSESSMENT 1. Possible pneumonia. 2. Chronic obstructive pulmonary disease. 3. Possible fungal pneumonia. PLAN At this point, will start patient broadly on antibiotics with Zyvox and meropenem. Unclear of the significance of Carmelina tropicalis in sputum culture although it is a typical colonization in the sputum and not usually treated. Although, due to the patient's recent steroid use this past year, will rule out for any type of fungal infections. Will check a beta D glucan as well as a urine histoplasmosis. Will also check a cryptococcal antigen as well as fungal bodies. Will check a procalcitonin at this time. Will discontinue Rocephin and will start Zyvox and Unit #: [id number] #: [id number] Patient: KATHLEEN FAIRBANKS meropenem for broad antibiotic coverage. Will follow up on chest x-rays and patient's progress. Will discuss plan with Lula and further recommendations to come from him. Patient will be seen by Dr. Dumont. Further recommendations will come from him. Dictated by... Stefani Burton APRN for Lula Dorsey TD: 11/13/2016 08:44 JOB #: [id number] CONSULTATION REPORT Page 1 of 1 X X CONSULTATION REPORT
--- NOTE | ~2016-11-10 | CT57 ---
[facility] A Service of [facility] & [facility] RADIOLOGY TEXT RESULTS PATIENT: KATHLEEN FAIRBANKS LOCATION: [facility] [id number] : [birth year] UNIT #: [id number] AGE: [address]: Valente Peace MD SEX: M ORDER DR: [id number] [facility] [address] [facility]. [place], [place] [address] [id number] MR#: [id number] Acc #: [id number] NAME: KATHLEEN FAIRBANKS. : 1950 SEX: M STUDY DATE/TIME: 11/15/2016 15:01 UNIT: [facility] ROOM: [facility] STUDY DESCRIPTION: CT Chest Wo Cont Attending Physician: Tika Peace M.D. Ordering Physician: Tika Peace M.D. Primary Care Physician: Yobany White M.D. MEDICAL IMAGING REPORT This report is preliminary unless electronic signature is present EXAM CT chest no contrast 11/15/2016 INDICATIONS 66-year-old male with nonproductive cough for a month and shortness of air, COPD. TECHNIQUE Noncontrast CT of the chest was performed and compared with 10/23/2016. This CT exam was performed with one or more of the following radiation dose reduction techniques: automatic control, adjustment of mA and/or kV according to patient size, and iterative reconstruction. FINDINGS CT CHEST: The lungs are emphysematous. Small left effusion. Interval improvement of consolidation in the left lower lobe. Improvement in consolidation in the lingula as well. Slight improvement of opacities in the right lower lobe. No pneumothorax. There are ground-glass opacities in both lower lobes left greater than right and to a lesser extent in the upper lobes. Slightly more dense parenchymal nodule in the left lower lobe measures 13 mm. The nodular densities are indeterminate but may be inflammatory or infectious. Suggest continued attention on followup to document resolution after appropriate therapy. At least a followup chest CT would be recommended in 3 months for reassessment. The largest ground-glass opacity in the right lung is in the superior segment right lower lobe measuring 1 cm previously 1.6 cm which would favor that the findings in both lungs are related to an inflammatory or infectious process given decrease in size. Included thyroid unremarkable. No pericardial effusion. No axillary adenopathy. Reactive-appearing mediastinal nodes. There is atherosclerotic change of the aorta and there is ectasia and borderline aneurysmal dilatation of the descending thoracic aorta measuring up to 3.4 STS. [facility] A Service of [facility] & [facility] RADIOLOGY TEXT RESULTS PATIENT: KATHLEEN FAIRBANKS LOCATION: [place] [address] : [birth year] UNIT #: [id number] AGE: [address]: Valente Peace MD SEX: M ORDER DR: gisel. Included upper abdomen demonstrates no acute finding. Nonobstructing 6 mm left renal stone. Equivocal uncomplicated cholelithiasis. Osseous structures demonstrate no suspicious bone lesion. IMPRESSION 1. The patient has a history of air space and interstitial disease in both lungs, dating back to 2014. On the prior study of 10/23/2016 findings had progressed and an atypical infectious or inflammatory process was considered a leading differential consideration. Since the prior study of 10/23/2016 there has been interval improvement of air space disease in both lungs suggesting response to therapy. 2. There are persistent ground-glass parenchymal nodules in both lungs. At least 1 of these has decreased in size and conspicuity in the right lower lobe also suggestive of response to therapy. 3. There is a new 1.3 cm noncalcified nodule in the left lower lobe that appears more solid. This may also be inflammatory or infectious but at least a followup CT in 3 months is recommended for reassessment of stability or decrease in size after appropriate therapy. 4. Background changes of emphysema. Trace left effusion. 5. No new adenopathy. 6. Upper abdomen demonstrates a nonobstructing left renal stone. Incidental ectasia and borderline aneurysmal dilatation of the descending thoracic aorta. Dictated by... Cornelius García M.D. THIS IS AN ELECTRONICALLY VERIFIED REPORT Cornelius García M.D. at 11/16/2016 11:23 PM MERE/augustin TD: 11/16/2016 03:49 JOB #: [id number] MEDICAL IMAGING REPORT Page 1 of 1 COPY
--- NOTE | ~2016-11-10 | CR72 ---
[facility]. [facility] A Service of [facility] & [facility] RADIOLOGY TEXT RESULTS PATIENT: KATHLEEN FAIRBANKS LOCATION: [place] [id number] : 50 UNIT #: [id number] AGE: [address]: Valente Peace MD SEX: M ORDER DR: [id number] [facility] [address]. [place], [place] [address] [id number] I MR#: [id number] Acc #: [id number] NAME: KATHLEEN FAIRBANKS. : 1950 SEX: M STUDY DATE/TIME: 11/11/2016 1:52 UNIT: [facility] ROOM: [facility] STUDY DESCRIPTION: CR Chest Single View Portable Attending Physician: Tika Peace M.D. Ordering Physician: George Sepulveda M.D. Primary Care Physician: Yobany White M.D. MEDICAL IMAGING REPORT This report is preliminary unless electronic signature is present EXAM Portable chest HISTORY Shortness of air today. FINDINGS Moderately extensive infiltrate in the left lower lung, greater in the left base is similar to CT chest 10/23/2016. Although nonspecific, this could be secondary to pneumonia. Small left pleural effusion. Bilateral emphysema. No new infiltrates. Dictated by... Lucho Mojica M.D. THIS IS AN ELECTRONICALLY VERIFIED REPORT Lucho Mojica M.D. at 11/12/2016 4:17 AM DFL/psc TD: 11/11/2016 09:07 JOB #: [id number] MEDICAL IMAGING REPORT Page 1 of 1 COPY
[~2016-11-10 22:27] MED LIST changes: -LEVAQUIN250 MG PO; -LINEZOLID600 MG PO
[2016-11-11 02:12] LABS: BASOPHIL# 0.1 X10e3 (0-0.3); BASOPHIL% 0.4 % (0-2.5); EOSINOPHIL# 0.2 X10e3 (0-0.7); EOSINOPHIL% 0.8 % (0.0-7.0); HEMATOCRIT 49.1 % (38.0-50.0); HEMOGLOBIN 16.2 gm/dL (13.0-16.0); LYMPHOCYTE# 0.6 X10e3 (1.0-3.5); LYMPHOCYTE% 2.8 % (17.0-45.0); MEAN CELL VOLUME 83.9 FL (83-96); MEAN CORPUSCULAR HEMOGLOBIN 27.6 PG (28-34); MEAN CORPUSCULAR HGB CONC 32.9 g/dL (30-36); MEAN PLATELET VOLUME 7.9 FL (6.5-11.5); MONOCYTE% 8.8 % (3.0-12.0); NEUTROPHIL# 19.4 X10e3 (1.5-7.1); NEUTROPHIL% 87.2 % (40-75); PLATELET COUNT 255 X10e3 (140-420); RED BLOOD COUNT 5.86 X10e (3.90-5.60); RED CELL DISTRIBUTION WIDTH 15.6 % (11.0-15.5); WHITE BLOOD COUNT 22.3 X10e3 (4.0-10.5)
[2016-11-11 02:13] LABS: DIFF IND YES
[2016-11-11 02:22] LABS: ARTERIAL BLD GAS O2 SATURATION 98.1 % (90.0-100.0); ARTERIAL BLOOD GAS CARBOXY HB 0.7 %sat (0.0-9.0); ARTERIAL BLOOD GAS HCO3 25.3 mmol/L; ARTERIAL BLOOD GAS MET HB 0.4 %sat (0.0-2.0); ARTERIAL BLOOD GAS PCO2 34.5 mmHg (35.0-45.0); ARTERIAL BLOOD GAS pH 7.473 (7.350-7.450)
[2016-11-11 02:23] LABS: ARTERIAL BLOOD GAS ALLEN TEST NORMAL; ARTERIAL BLOOD GAS ART SITE RIGHT RADIAL; ARTERIAL DRAW? YES
[2016-11-11 02:28] LABS: POC - CKMB 7.5 ng/mL (0.0-7.9); POC - TROPONIN 0.09 ng/mL (<=0.05)
[2016-11-11 02:29] LABS: PLATELET ESTIMATE NORMAL (NORMAL)
[2016-11-11 02:30] LABS: ALBUMIN SERUM 3.8 g/dL (3.5-5.0); ANISOCYTOSIS SL; BILIRUBIN, DIRECT 0.2 mg/dL (0.0-0.2); BILIRUBIN,INDIRECT 0.7 mg/dL (0.0-0.9); BILIRUBIN,TOTAL 0.9 mg/dL (0.2-2.0); BUN/CREATININE RATIO 14.16; CREATININE SERUM 1.2 mg/dL (0.6-1.4); GLOM FILT RATE Estimated 62.7 mL/min (>60); POIKILOCYTOSIS MOD; POTASSIUM 3.9 mmol/L (3.5-5.1); PROTEIN TOTAL SERUM 7.9 g/dL (6.0-8.3)
[2016-11-11 03:48] LABS: ARTERIAL BLD GAS O2 SATURATION 97.2 % (90.0-100.0); ARTERIAL BLOOD GAS CARBOXY HB 0.6 %sat (0.0-9.0); ARTERIAL BLOOD GAS HCO3 26.8 mmol/L; ARTERIAL BLOOD GAS MET HB 0.6 %sat (0.0-2.0); ARTERIAL BLOOD GAS PCO2 37.8 mmHg (35.0-45.0); ARTERIAL BLOOD GAS pH 7.459 (7.350-7.450)
[2016-11-11 03:50] LABS: ARTERIAL BLOOD GAS ALLEN TEST NORMAL; ARTERIAL BLOOD GAS ART SITE RIGHT RADIAL; ARTERIAL DRAW? YES
[2016-11-11 04:26] LABS: BASOPHIL% 0.2 % (0-2.5); EOSINOPHIL# 0.1 X10e3 (0-0.7); EOSINOPHIL% 0.4 % (0.0-7.0); HEMATOCRIT 47.9 % (38.0-50.0); HEMOGLOBIN 15.5 gm/dL (13.0-16.0); LYMPHOCYTE# 0.3 X10e3 (1.0-3.5); LYMPHOCYTE% 1.4 % (17.0-45.0); MEAN CELL VOLUME 84.4 FL (83-96); MEAN CORPUSCULAR HEMOGLOBIN 27.3 PG (28-34); MEAN CORPUSCULAR HGB CONC 32.4 g/dL (30-36); MEAN PLATELET VOLUME 7.9 FL (6.5-11.5); MONOCYTE# 0.9 X10e3 (0-1.0); MONOCYTE% 4.5 % (3.0-12.0); NEUTROPHIL# 19.4 X10e3 (1.5-7.1); NEUTROPHIL% 93.5 % (40-75); PLATELET COUNT 206 X10e3 (140-420); RED BLOOD COUNT 5.68 X10e (3.90-5.60); RED CELL DISTRIBUTION WIDTH 15.7 % (11.0-15.5); WHITE BLOOD COUNT 20.7 X10e3 (4.0-10.5)
[2016-11-11 04:27] LABS: DIFF IND YES
[2016-11-11 04:47] LABS: BUN/CREATININE RATIO 16.36; CALCIUM SERUM 8.5 mg/dL (8.4-10.2); CREATININE SERUM 1.1 mg/dL (0.6-1.4); GLOM FILT RATE Estimated 69.6 mL/min (>60)
[2016-11-11 04:56] LABS: PLATELET ESTIMATE NORMAL (NORMAL)
[2016-11-11 04:57] LABS: ANISOCYTOSIS SL; OVALOCYTES PRESENT; POIKILOCYTOSIS SL
[2016-11-11 09:14] LABS: %MB 1.8 % (0.0-4.0); MB 4.8 ng/ml
[2016-11-11 15:38] LABS: %MB 3.4 % (0.0-4.0); MB 6.4 ng/ml
[2016-11-11 22:16] LABS: %MB 5.5 % (0.0-4.0); MB 8.7 ng/ml
[2016-11-12 04:11] LABS: ARTERIAL BLD GAS O2 SATURATION 94.5 % (90.0-100.0); ARTERIAL BLOOD GAS CARBOXY HB 0.5 %sat (0.0-9.0); ARTERIAL BLOOD GAS HCO3 28.3 mmol/L; ARTERIAL BLOOD GAS MET HB 0.6 %sat (0.0-2.0); ARTERIAL BLOOD GAS PCO2 41.7 mmHg (35.0-45.0)
[2016-11-12 04:14] LABS: ARTERIAL BLOOD GAS ALLEN TEST NORMAL; ARTERIAL BLOOD GAS ART SITE RIGHT RADIAL; ARTERIAL BLOOD GAS PO2 72.9 mmHg (80.0-100); ARTERIAL DRAW? YES
[2016-11-12 05:44] LABS: BASOPHIL% 0.2 % (0-2.5); EOSINOPHIL% 0.1 % (0.0-7.0); HEMOGLOBIN 14.7 gm/dL (13.0-16.0); LYMPHOCYTE# 0.8 X10e3 (1.0-3.5); MEAN CORPUSCULAR HEMOGLOBIN 28.1 PG (28-34); MEAN CORPUSCULAR HGB CONC 33.4 g/dL (30-36); MEAN PLATELET VOLUME 8.3 FL (6.5-11.5); MONOCYTE# 0.9 X10e3 (0-1.0); MONOCYTE% 4.4 % (3.0-12.0); NEUTROPHIL# 18.6 X10e3 (1.5-7.1); NEUTROPHIL% 91.3 % (40-75); PLATELET COUNT 206 X10e3 (140-420); RED BLOOD COUNT 5.24 X10e (3.90-5.60); RED CELL DISTRIBUTION WIDTH 15.6 % (11.0-15.5); WHITE BLOOD COUNT 20.3 X10e3 (4.0-10.5)
[2016-11-12 05:51] LABS: DIFF IND NO
[2016-11-12 06:22] LABS: BUN/CREATININE RATIO 31.25; CALCIUM SERUM 8.6 mg/dL (8.4-10.2); CREATININE SERUM 0.8 mg/dL (0.6-1.4); GLOM FILT RATE Estimated 93.1 mL/min (>60); MAGNESIUM 2.4 mg/dL (1.6-3.0); POTASSIUM 4.4 mmol/L (3.5-5.1)
[2016-11-13 05:26] LABS: ARTERIAL BLD GAS O2 SATURATION 88.9 % (90.0-100.0); ARTERIAL BLOOD GAS CARBOXY HB 0.6 %sat (0.0-9.0); ARTERIAL BLOOD GAS HCO3 27.9 mmol/L; ARTERIAL BLOOD GAS MET HB 0.7 %sat (0.0-2.0); ARTERIAL BLOOD GAS PCO2 37.5 mmHg (35.0-45.0)
[2016-11-13 05:27] LABS: ARTERIAL BLOOD GAS ALLEN TEST NORMAL; ARTERIAL BLOOD GAS ART SITE LEFT RADIAL; ARTERIAL BLOOD GAS DELIVERY OXYMIZER; ARTERIAL BLOOD GAS PO2 53.6 mmHg (80.0-100); ARTERIAL DRAW? YES
[2016-11-13 05:54] LABS: BASOPHIL% 0.1 % (0-2.5); HEMATOCRIT 43.7 % (38.0-50.0); HEMOGLOBIN 14.2 gm/dL (13.0-16.0); LYMPHOCYTE# 0.7 X10e3 (1.0-3.5); LYMPHOCYTE% 3.7 % (17.0-45.0); MEAN CELL VOLUME 83.4 FL (83-96); MEAN CORPUSCULAR HEMOGLOBIN 27.2 PG (28-34); MEAN CORPUSCULAR HGB CONC 32.6 g/dL (30-36); MEAN PLATELET VOLUME 8.7 FL (6.5-11.5); MONOCYTE# 0.7 X10e3 (0-1.0); MONOCYTE% 3.4 % (3.0-12.0); NEUTROPHIL# 18.6 X10e3 (1.5-7.1); NEUTROPHIL% 92.8 % (40-75); PLATELET COUNT 252 X10e3 (140-420); RED BLOOD COUNT 5.24 X10e (3.90-5.60); RED CELL DISTRIBUTION WIDTH 15.2 % (11.0-15.5); WHITE BLOOD COUNT 20.1 X10e3 (4.0-10.5)
[2016-11-13 06:00] LABS: DIFF IND NO
[2016-11-13 06:04] LABS: ALBUMIN SERUM 2.6 g/dL (3.5-5.0); BILIRUBIN,TOTAL 0.4 mg/dL (0.2-2.0); CALCIUM SERUM 8.4 mg/dL (8.4-10.2); CREATININE SERUM 0.8 mg/dL (0.6-1.4); GLOM FILT RATE Estimated 93.1 mL/min (>60); PROTEIN TOTAL SERUM 5.9 g/dL (6.0-8.3)
[2016-11-13 15:28] LABS: CRYPTO AG CSF/SERUM NEG (NEG); CRYPTO AG SOURCE SERUM
[2016-11-15 05:33] LABS: BASOPHIL% 0.2 % (0-2.5); HEMATOCRIT 48.6 % (38.0-50.0); HEMOGLOBIN 16.1 gm/dL (13.0-16.0); LYMPHOCYTE# 0.9 X10e3 (1.0-3.5); LYMPHOCYTE% 5.4 % (17.0-45.0); MEAN CORPUSCULAR HEMOGLOBIN 27.8 PG (28-34); MEAN PLATELET VOLUME 8.4 FL (6.5-11.5); MONOCYTE# 0.5 X10e3 (0-1.0); MONOCYTE% 2.7 % (3.0-12.0); NEUTROPHIL# 15.7 X10e3 (1.5-7.1); NEUTROPHIL% 91.7 % (40-75); PLATELET COUNT 297 X10e3 (140-420); RED BLOOD COUNT 5.79 X10e (3.90-5.60); RED CELL DISTRIBUTION WIDTH 15.6 % (11.0-15.5); WHITE BLOOD COUNT 17.1 X10e3 (4.0-10.5)
[2016-11-15 05:35] LABS: DIFF IND YES
[2016-11-15 06:50] LABS: PLATELET ESTIMATE NORMAL (NORMAL)
[2016-11-15 06:53] LABS: ALBUMIN SERUM 2.9 g/dL (3.5-5.0); BILIRUBIN,TOTAL 0.4 mg/dL (0.2-2.0); BUN/CREATININE RATIO 25.55; CALCIUM SERUM 8.6 mg/dL (8.4-10.2); CREATININE SERUM 0.9 mg/dL (0.6-1.4); GLOM FILT RATE Estimated 88.7 mL/min (>60); POTASSIUM 4.5 mmol/L (3.5-5.1)
[2016-11-17 07:42] LABS: CALCIUM SERUM 8.3 mg/dL (8.4-10.2); CREATININE SERUM 0.7 mg/dL (0.6-1.4); GLOM FILT RATE Estimated 98.4 mL/min (>60); MAGNESIUM 2.6 mg/dL (1.6-3.0); PHOSPHOROUS 2.5 mg/dL (2.5-4.6); POTASSIUM 4.5 mmol/L (3.5-5.1)
[2016-11-17 07:49] LABS: DIFF IND NO; HEMATOCRIT 47.7 % (38.0-50.0); HEMOGLOBIN 15.7 gm/dL (13.0-16.0); LYMPHOCYTE# 0.6 X10e3 (1.0-3.5); LYMPHOCYTE% 3.8 % (17.0-45.0); MEAN CELL VOLUME 83.6 FL (83-96); MEAN CORPUSCULAR HEMOGLOBIN 27.4 PG (28-34); MEAN CORPUSCULAR HGB CONC 32.8 g/dL (30-36); MEAN PLATELET VOLUME 8.1 FL (6.5-11.5); MONOCYTE# 0.3 X10e3 (0-1.0); MONOCYTE% 1.7 % (3.0-12.0); NEUTROPHIL# 14.7 X10e3 (1.5-7.1); NEUTROPHIL% 94.5 % (40-75); PLATELET COUNT 350 X10e3 (140-420); RED CELL DISTRIBUTION WIDTH 15.1 % (11.0-15.5); WHITE BLOOD COUNT 15.6 X10e3 (4.0-10.5)
[2016-11-18 18:23] LABS: ASPERGILLUS FLAVUS Negative (Negative); ASPERGILLUS FUMIGATUS Negative (Negative); ASPERGILLUS NIGER Negative (Negative); BLASTOMYCES ANTIBODY Negative (Negative); COCCIDIODES ANTIBODY Negative (Negative); CRYPTOCOCCAL AB <1:2 (()); CRYPTOCOCCAL AG SCREEN SOURCE Serum (()); CRYPTOCOCCAL SCREEN Not Detected (Not Detected); HISTOPLASMA AB Negative (Negative)
[2016-11-19 05:39] LABS: HEMATOCRIT 48.9 % (38.0-50.0); HEMOGLOBIN 16.1 gm/dL (13.0-16.0); MEAN CELL VOLUME 83.8 FL (83-96); MEAN CORPUSCULAR HEMOGLOBIN 27.6 PG (28-34); MEAN PLATELET VOLUME 7.6 FL (6.5-11.5); RED BLOOD COUNT 5.84 X10e (3.90-5.60); RED CELL DISTRIBUTION WIDTH 15.7 % (11.0-15.5); WHITE BLOOD COUNT 18.9 X10e3 (4.0-10.5)
[2016-11-19 06:12] LABS: BUN/CREATININE RATIO 26.25; CALCIUM SERUM 7.9 mg/dL (8.4-10.2); CREATININE SERUM 0.8 mg/dL (0.6-1.4); GLOM FILT RATE Estimated 93.1 mL/min (>60); POTASSIUM 3.8 mmol/L (3.5-5.1)
[2016-11-19] MEDS ORDERED: IPRAT-ALBUT 0.5-3 ML INH (22:29)
[2016-11-19] MEDS ORDERED: LINEZOLID600 MG PO (22:31)
[2016-11-19] MEDS ORDERED: LEVAQUIN250 MG PO (22:33)
== END 2016-11-19 23:39 | disposition home or self-care (01) | DRG 189 ==
LOC: CED 22:27 → CEDOF 11-11 02:50 → CICCU3 11-11 03:07 → CED 11-11 03:07 → CICCU3 11-11 04:57 → CEDOF 11-11 04:57 → CICCU3 11-11 04:57 → C5B 11-13 09:44 → C3A PCU 11-17 20:14
PROVIDERS: Emergency Medicine; Internal Medicine Pulmonary Disease; Nurse Practitioner Family
DX: J96.21 Acute and chronic respiratory failure with hypoxia (principal); B37.1 Pulmonary candidiasis; J44.0 Chronic obstructive pulmonary disease with (acute) lower respiratory infection; J44.1 Chronic obstructive pulmonary disease with (acute) exacerbation; Z87.01 Personal history of pneumonia (recurrent); Z98.52 Vasectomy status; Z87.891 Personal history of nicotine dependence
CPT/HCPCS: 36415; 36600; 71010; 71250; 80048; 80053; 80076; 82308; 82550; 82553; 82803; 82947; 83605; 83735; 83880; 84100; 84484; 85025; 85027; 86606; 86612; 86631; 86698; 87040; 87070; 87205; 87633; 87899; 93005; 94010; 94640; 94660; 94760; 96374; 99291; J0456; J0696; J1650; J1940; J2020; J2185; J2930